=== PATIENT | female | born 1940 | race Caucasian/White ===

== ENCOUNTER → 2017-05-11 15:17 | Outpatient (CLI) | payer MEDICARE, SELFPAY ==
[2017-05-11 15:24] LABS: Mucous, Urine 0 SEEN /hpf (<or=2+); Red Blood Cells-Urine 0 SEEN /hpf (0-5)
[2017-05-11 17:39] LABS: Absolute Lymphocyte Count 1.85 X10^3/ul (0.83-4.51); Absolute Neutrophil Count 3.4 X10^3/uL (2.0-7.7); Basophil# 0.02 X10^3/uL; Basophil% 0.3 % (0-1); Eosinophil# 0.21 X10^3/uL; Eosinophils% 3.4 % (0-5); Hematocrit 38.3 % (37-47); Hemoglobin 13.1 g/dl (12.0-15.0); Lymphocyte # 1.85 X10^3/ul (4.0); Lymphocyte % 29.6 % (19-41); Mean Corp Hgb Conc 34.2 g/gl (32-36); Mean Corpuscular Hgb 34.3 pg (27.0-32.0); Mean Corpuscular Volume 100.3 fL (81-99); Mean Platelet Vol. 10.1 fl (6.2-12.0); Monocyte# 0.73 X10^3/uL; Monocyte% 11.7 % (0-10); Neutrophil # 3.43 X10^3/uL (2.7-7.7); Neutrophil % 54.8 % (47-70); Platelet Count 191 K/mm3 (150-450); RBC Distribution Width CV 12.9 % (11.6-14.6); Red Blood Count 3.82 M/mm3 (4.2-5.4); White Blood Count 6.3 K/mm3 (4.4-11.0)
[2017-05-11 17:40] LABS: POSITIVE COUNT NO; POSITIVE DIFFERENTIAL NO; POSITIVE MORPHOLOGY NO
[2017-05-11 17:53] LABS: ALB/GLOB Ratio 1.3 RATIO (0.9-2.4); AST(SGOT) 28 U/L (15-37); Alanine Aminotransfer ALT/SGPT 33 U/L (13-56); Alkaline Phosphatase 97 U/L (45-117); Anion Gap 6 (5-15); BUN 20 mg/dL (7-18); BUN/Creat Ratio 17.7 RATIO (10-20); Calcium,Total 9.1 mg/dL (8.5-10.1); Chloride 102 mmol/L (98-107); Cholesterol 158 mg/dL (200); Creatinine, Serum 1.13 mg/dL (0.55-1.02); EST Glomerular Filtration Rate 50 mL/min (>60); Est Glom Filt Rate - Afr Amer 60 mL/min (>60); Ferritin 124 ng/mL (8-252); Glucose 78 mg/dL (74-106); High Density Lipoprotein 60 mg/dL; Iron 95 ug/dL (50-170); Potassium 3.9 mmol/L (3.5-5.1); Sodium Level 139 mmol/L (136-145); Triglycerides 200 mg/dL; Very Low Density Lipoprotein 40 mg/dL (5-40)
[2017-05-11 18:02] LABS: Color, Urine Yellow (Yellow); Glucose, Dipstick Normal (Normal); Ketone-Dipstick Negative (Negative); Leukocyte Esterase-Dipstick 25 /ul (Negative); Nitrite-Dipstick Negative (Negative); Occult Blood-Urine Negative /ul (Negative); Protein-Dipstick Negative (Negative); Specific Gravity, Urine 1.015 (1.002-1.030); Urine Bilirubin Dipstick Negative (Negative); Urine Clarity Cloudy (Clear); Urine Urobilinogen Normal (Normal)
[2017-05-11 18:11] LABS: Amorphous Sediment 3+; Bacteria 4+ /hpf (None Seen); Squamous Epithelial Cells - UA 0-5 SEEN /hpf (5-10); White Blood Cells 0-5 SEEN /hpf (0-5)
== END ==
PROVIDERS: Family Provider Family Medicine; PCP Family Medicine; Visit Provider Family Medicine
DX: I12.9 Hypertensive chronic kidney disease with stage 1 through stage 4 chronic kidney disease, or unspecified chronic kidney disease (principal); N18.3 Chronic kidney disease, stage 3 (moderate); R35.0 Frequency of micturition; E78.5 Hyperlipidemia, unspecified; G30.9 Alzheimer's disease, unspecified; D64.9 Anemia, unspecified
CPT/HCPCS: 36415; 80053; 80061; 81001; 82728; 83540; 85025; 87086; 87088

== ENCOUNTER 2018-06-06 18:43 | Inpatient (IN) | payer MEDICARE, SELFPAY ==
[2018-06-06] VITALS (10 sets, daily range): BP systolic 183–196; BP diastolic 81–96; PULSE 59–104; RESP 17–23; TEMP 36.8–37.2; O2SAT 96–100; BMI 30.1; BMI 28.3; BMI 28.4
--- NOTE | 2018-06-06 18:50 | ED.RN ---
RN CALLED FOR EKG, PULLED OLD EKGS FOR
--- NOTE | 2018-06-06 18:54 | CT_ITS ---
STUDY: CTA OF THE BRAIN REASON FOR EXAM: Female, 77 years old. Confusion, dizziness. RADIATION DOSAGE (If Supplied By Facility): CTDIvol = ( 25.74 ) mGy, DLP = ( 1285.31 ) mGycm TECHNIQUE: CT angiography was performed with a multi-detector CT scanner. Data acquisition was obtained from the skull base through the vertex following intravenous administration of 100ML IV Isovue 370. MIP images were reconstructed from the axial data set. Post-processing of the angiographic images was performed, with multiplanar reformation and 3D reconstruction. Individualized dose optimization techniques were used for this CT. COMPARISON: None. FINDINGS: CT brain without contrast: There is no intracranial mass, hemorrhage, or acute territorial infarct. Extensive low-attenuation changes in the periventricular white matter are consistent with microvascular ischemia. Ventricular size is commensurate with the degree of sulcal atrophy. Moderate involutional changes are present. There is trace mucosal thickening in the maxillary sinuses.. There is no osseous abnormality. CTA brain: Normal bilateral petrous carotid arteries. Normal right cavernous carotid artery with a normal supraclinoid bifurcation. Normal left cavernous carotid artery with a normal supraclinoid bifurcation. Normal right A1 segment of the anterior cerebral artery. Normal left A1 segment of the anterior cerebral artery. There is non-visualization of the anterior communicating artery (ACOM). Normal bilateral A2 segments of the anterior cerebral arteries. Normal right M1 and M2 segments of the middle cerebral arteries, with a normal M1 bifurcation. Normal left M1 and M2 segments of the middle cerebral arteries, with a normal M1 bifurcation. Normal right posterior communicating artery (PCOM). There is non-visualization of the left posterior communicating artery (PCOM). Normal bilateral vertebral arteries. Normal basilar artery with a normal basilar bifurcation. The visualized bilateral superior cerebellar (SCA) arteries are normal. Normal bilateral P1, P2 and visualized P3 segments of the posterior cerebral arteries. There is no demonstrated aneurysm of the [place]. IMPRESSION: 1. Normal [place] without a demonstrated aneurysm or significant stenosis. 2. Microvascular ischemic changes. Atrophy. Electronically Signed: Alycai Mahoney MD at 20:11 EDT Tel , Service support , STUDY: CTA NECK WITH CONTRAST REASON FOR EXAM: Female, 77 years old. Confusion, dizziness. RADIATION DOSAGE (If Supplied By Facility): CTDIvol = ( ) mGy, DLP = ( ) mGycm TECHNIQUE: CT angiography with multi-detector data acquisition was performed from the aortic arch to the skull base following intravenous administration of 100mL IV Isovue 370. MIP images were reconstructed from the axial data set. Post-processing of the angiographic images was performed, with multiplanar reformation and 3D reconstruction. Individualized dose optimization techniques were used for this CT. COMPARISON: None. FINDINGS: AORTIC ARCH: Normal visualized aortic arch. Normal origins of the brachiocephalic, left common carotid, and left subclavian arteries. RIGHT CAROTID ARTERIES: Normal right common carotid artery (CCA). There is moderate atherosclerotic plaque formation without narrowing of the right carotid bulb. Normal origin of the right internal carotid (ICA) artery without a significant stenosis. Normal visualized cervical portion of the right internal carotid artery. Normal origin of the right external carotid artery (ECA). LEFT CAROTID ARTERIES: Normal left common carotid artery (CCA). There is moderate atherosclerotic plaque formation without narrowing of the left carotid bulb. Normal origin of the left internal carotid (ICA) artery without a significant stenosis. Normal visualized cervical portion of the left internal carotid artery. Normal origin of the left external carotid artery (ECA). VERTEBRAL ARTERIES: Normal bilateral vertebral arteries. CT/CTA Head W/WO Contrast IMPRESSION: Atherosclerotic plaque of the carotid bulbs, otherwise negative bilateral cervical carotid and vertebral arteries. Electronically Signed: Alycia Mahoney MD at 20:19 EDT Tel , Service support ,
--- NOTE | 2018-06-06 18:54 | EKG12_ITS ---
Test Reason : CP Blood Pressure : / mmHG Vent. Rate : 095 BPM Atrial Rate : 095 BPM P-R Int : 114 ms QRS Dur : 082 ms QT Int : 356 ms P-R-T Axes : -01 -28 002 degrees QTc Int : 447 ms Sinus rhythm with marked sinus arrhythmia Borderline ECG Confirmed by ELIZABETH SETHI ([id number]), graphics editor BEN CALLE ([id number]) on 06/10/2018 4:52:26 PM Referred By: Ethan Morgan Confirmed By:ELIZABETH SETHI
--- NOTE | 2018-06-06 18:54 | CT_ITS ---
STUDY: CTA OF THE BRAIN REASON FOR EXAM: Female, 77 years old. Confusion, dizziness. RADIATION DOSAGE (If Supplied By Facility): CTDIvol = ( 25.74 ) mGy, DLP = ( 1285.31 ) mGycm TECHNIQUE: CT angiography was performed with a multi-detector CT scanner. Data acquisition was obtained from the skull base through the vertex following intravenous administration of 100ML IV Isovue 370. MIP images were reconstructed from the axial data set. Post-processing of the angiographic images was performed, with multiplanar reformation and 3D reconstruction. Individualized dose optimization techniques were used for this CT. COMPARISON: None. FINDINGS: CT brain without contrast: There is no intracranial mass, hemorrhage, or acute territorial infarct. Extensive low-attenuation changes in the periventricular white matter are consistent with microvascular ischemia. Ventricular size is commensurate with the degree of sulcal atrophy. Moderate involutional changes are present. There is trace mucosal thickening in the maxillary sinuses.. There is no osseous abnormality. CTA brain: Normal bilateral petrous carotid arteries. Normal right cavernous carotid artery with a normal supraclinoid bifurcation. Normal left cavernous carotid artery with a normal supraclinoid bifurcation. Normal right A1 segment of the anterior cerebral artery. Normal left A1 segment of the anterior cerebral artery. There is non-visualization of the anterior communicating artery (ACOM). Normal bilateral A2 segments of the anterior cerebral arteries. Normal right M1 and M2 segments of the middle cerebral arteries, with a normal M1 bifurcation. Normal left M1 and M2 segments of the middle cerebral arteries, with a normal M1 bifurcation. Normal right posterior communicating artery (PCOM). There is non-visualization of the left posterior communicating artery (PCOM). Normal bilateral vertebral arteries. Normal basilar artery with a normal basilar bifurcation. The visualized bilateral superior cerebellar (SCA) arteries are normal. Normal bilateral P1, P2 and visualized P3 segments of the posterior cerebral arteries. There is no demonstrated aneurysm of the [place]. IMPRESSION: 1. Normal [place] without a demonstrated aneurysm or significant stenosis. 2. Microvascular ischemic changes. Atrophy. Electronically Signed: Alycia Mahoney MD at 20:11 EDT Tel , Service support , STUDY: CTA NECK WITH CONTRAST REASON FOR EXAM: Female, 77 years old. Confusion, dizziness. RADIATION DOSAGE (If Supplied By Facility): CTDIvol = ( ) mGy, DLP = ( ) mGycm TECHNIQUE: CT angiography with multi-detector data acquisition was performed from the aortic arch to the skull base following intravenous administration of 100mL IV Isovue 370. MIP images were reconstructed from the axial data set. Post-processing of the angiographic images was performed, with multiplanar reformation and 3D reconstruction. Individualized dose optimization techniques were used for this CT. COMPARISON: None. FINDINGS: AORTIC ARCH: Normal visualized aortic arch. Normal origins of the brachiocephalic, left common carotid, and left subclavian arteries. RIGHT CAROTID ARTERIES: Normal right common carotid artery (CCA). There is moderate atherosclerotic plaque formation without narrowing of the right carotid bulb. Normal origin of the right internal carotid (ICA) artery without a significant stenosis. Normal visualized cervical portion of the right internal carotid artery. Normal origin of the right external carotid artery (ECA). LEFT CAROTID ARTERIES: Normal left common carotid artery (CCA). There is moderate atherosclerotic plaque formation without narrowing of the left carotid bulb. Normal origin of the left internal carotid (ICA) artery without a significant stenosis. Normal visualized cervical portion of the left internal carotid artery. Normal origin of the left external carotid artery (ECA). VERTEBRAL ARTERIES: Normal bilateral vertebral arteries. CT/CTA Neck W/WO Contrast IMPRESSION: Atherosclerotic plaque of the carotid bulbs, otherwise negative bilateral cervical carotid and vertebral arteries. Electronically Signed: Alycia Mahoney MD at 20:19 EDT Tel , Service support ,
[2018-06-06 19:06] LABS: Basophil# 0.03 X10^3/uL; Basophil% 0.3 % (0-1); Eosinophil# 0.07 X10^3/uL; Eosinophils% 0.7 % (0-5); Hematocrit 42.5 % (37-47); Hemoglobin 14.9 g/dl (12.0-15.0); Lymphocyte % 18.7 % (19-41); Mean Corp Hgb Conc 35.1 g/gl (32-36); Mean Corpuscular Hgb 33.9 pg (27.0-32.0); Mean Corpuscular Volume 96.8 fL (81-99); Mean Platelet Vol. 9.4 fl (6.2-12.0); Monocyte# 1.21 X10^3/uL; Monocyte% 11.9 % (0-10); Neutrophil # 6.95 X10^3/uL (2.7-7.7); Neutrophil % 68.2 % (47-70); Platelet Count 185 K/mm3 (150-450); RBC Distribution Width CV 12.2 % (11.6-14.6); RBC Distribution Width SD 43.2 fl (35.1-43.9); Red Blood Count 4.39 M/mm3 (4.2-5.4); White Blood Count 10.2 K/mm3 (4.4-11.0)
[2018-06-06 19:09] LABS: Prothrombin Time (Protime)PT. 13.1 SECONDS (11.7-14.9)
[2018-06-06 19:10] LABS: POSITIVE COUNT NO; POSITIVE DIFFERENTIAL NO; POSITIVE MORPHOLOGY NO; Partial Thromboplast Time 29.6 Seconds (24.1-36.2)
--- NOTE | 2018-06-06 19:15 | RAD_ITS ---
STUDY: X-RAY CHEST REASON FOR EXAM: Female, 77 years old. Confusion, weakness TECHNIQUE: Single AP portable view of the chest. COMPARISON: 11/08/2016 FINDINGS: EKG leads overlie the chest The lungs are clear and expanded. There is no demonstrated pleural abnormality. Normal size heart. Normal mediastinum and flavio. Normal visualized pulmonary arteries. Normal visualized aortic arch and descending thoracic aorta. Normal visualized thoracic spine. Normal visualized ribs, clavicles, and shoulders. There is no demonstrated abnormality of the visualized soft tissue structures of the upper abdomen. RAD/Chest 1 View IMPRESSION: No acute pulmonary process Electronically Signed: Sudhakar Lama MD at 19:37 EDT , Service support ,
[2018-06-06] MEDS: Aspirin 81 MG TAB.CHEW 324 MG PO (19:25)
[2018-06-06 19:27] LABS: Anion Gap 6 (5-15); BUN 14 mg/dL (7-18); BUN/Creat Ratio 13.2 RATIO (10-20); Calcium,Total 9.7 mg/dL (8.5-10.1); Chloride 99 mmol/L (98-107); Creatinine, Serum 1.06 mg/dL (0.55-1.02); EST Glomerular Filtration Rate 54 mL/min (>60); Est Glom Filt Rate - Afr Amer 65 mL/min (>60); Estimated Creatinine Clearance 44.94 ml/min; Glucose 92 mg/dL (74-106); Potassium 3.6 mmol/L (3.5-5.1); Sodium Level 134 mmol/L (136-145)
[2018-06-06 19:44] LABS: Bacteria 0 SEEN /hpf (None Seen); Mucous, Urine 0 SEEN /hpf (<or=2+); Red Blood Cells-Urine 0 SEEN /hpf (0-5); Squamous Epithelial Cells - UA 0 SEEN /hpf (5-10); White Blood Cells 0 SEEN /hpf (0-5)
[2018-06-06 19:47] LABS: Color, Urine Straw (Yellow); Glucose, Dipstick Normal (Normal); Ketone-Dipstick Negative (Negative); Leukocyte Esterase-Dipstick 25 /ul (Negative); Nitrite-Dipstick Negative (Negative); Occult Blood-Urine Negative /ul (Negative); Protein-Dipstick Negative (Negative); Urine Bilirubin Dipstick Negative (Negative); Urine Clarity Clear (Clear); Urine Urobilinogen Normal (Normal)
--- NOTE | 2018-06-06 19:57 | ED.DCSUM_ITS ---
- ER Visit Summary Date of Service: 06/06/18 Chief Complaint: Chest pain, neck pain History of Present Illness: The patient is a 77 F who comes in with family complaining of chest pain and neck pain. This neck pain started yesterday. Family thought she was a little bit confused as well. She has this pain in her chest which she cannot describe the quality of. She denies nausea vomiting or shortness of breath. They thought her speech was also slurred. She has no history of stroke in the past. Physical Examination: Vital signs reviewed. HEENT exam unremarkable. Heart is regular rate and rhythm without murmurs. Lungs are clear to auscultation. Abdomen is soft and nontender. Extremities reveal no edema. Skin exam normal. Neurologic exam normal. Her NIH is 0. Test Results: EKG is a sinus arrhythmia with rate of 95. Nonspecific ST and T wave changes noted. CTA of the head and neck reveals some atherosclerotic plaques in the carotid arteries but no obstruction. Chest x-ray normal. Labs are unremarkable except for a sodium of 134 Emergency Department Course and Treatment: The patient was medicated with aspirin. Due to her nonspecific symptoms I did do CTAs of her head and neck. There is no obstructing lesions. Due to the patient's chest pain I feel she should be admitted for cycling of her troponins due to her age and risk factors. I discussed with the hospitalist for admission. Treatment Plan: [] Disposition: Admit Impression: Chest pain, neck pain This note was generated with [employer] dictation software. It may contain incorrect words, spelling, and punctuation that were not noted in review of the chart prior to signing ED Disposition - Plan for ED Patient: Referrals: Filiberto Robles DO [Primary Care Provider] -
--- NOTE | 2018-06-06 20:54 | ED.RN ---
per d/c nih d/t 3 neg nih's.
--- NOTE | 2018-06-06 21:27 | PCM.HP.STD ---
Problem List (1) Chest pain Status: Acute Qualifiers: Chest pain type: unspecified Qualified Code(s): R07.9 - Chest pain, unspecified (2) Ulcer of toe of left foot Status: Acute Qualifiers: Non-pressure ulcer stage: unspecified non-pressure ulcer stage Qualified Code(s): L97.529 - Non-pressure chronic ulcer of other part of left foot with unspecified severity (3) Dementia Status: Chronic Qualifiers: Dementia type: unspecified type Dementia behavioral disturbance: without behavioral disturbance Qualified Code(s): F03.90 - Unspecified dementia without behavioral disturbance (4) HTN (hypertension) Status: Chronic Qualifiers: Hypertension type: essential hypertension Qualified Code(s): I10 - Essential (primary) hypertension (5) HLD (hyperlipidemia) Status: Chronic Qualifiers: Hyperlipidemia type: pure hypercholesterolemia Qualified Code(s): E78.00 - Pure hypercholesterolemia, unspecified; E78.0 - Pure hypercholesterolemia (6) GERD (gastroesophageal reflux disease) Status: Chronic Qualifiers: Esophagitis presence: esophagitis presence not specified Qualified Code(s): K21.9 - Gastro-esophageal reflux disease without esophagitis (7) Neuropathy Status: Chronic (8) Allergic rhinitis Status: Chronic Qualifiers: Allergic rhinitis trigger: unspecified Allergic rhinitis seasonality: unspecified Qualified Code(s): J30.9 - Allergic rhinitis, unspecified History of Present Illness Date of Admission: 06/06/18 Chief Complaint: Chest pain, neck tightness, L 2nd toe ulcer The patient is a 77 y/o F w/ PMHx: Dementia unclear type without behavioral disturbance history, HTN, HLD, GERD, Neuropathy, Allergic Rhinitis who presents to the [facility] ED on 06/06/18 with history of 48 hours of midsternal chest tightness noted to be intermittent in nature with constant BL shoulder as well as neck discomfort, tense, worse with certain movements; however, did have episode of chest tightness at ~ 5:00 pm on day of ED presentation with associated dyspnea as well as nausea without emesis. Daughter has stated that over the last 48 hours patient has been more confused than baseline although does have at least moderate dementia and difficulties baseline. In the ED upon evaluation they noted having been following w/ Dr. Morgan Podiatry for chronic L 2nd toe distal tip ulcer. The dressing was removed and the foot was warm to touch and the distal tip appeared necrotic and was added with notable purulent material expressed. Discussed these findings with the ED physician and blood culture as well as lactic acid was added although upon evaluation initially patient had been afebrile and CBC did not have a market WBC elevation or left shift. Contacted Dr. Morgan and discussed case with notably quick progression of these findings as patient had had a recent evaluation in the office with planned consultation to Dr. medina who is covering service currently. In the ED patient had a complete resolution of chest discomfort but prior to this had stated that the discomfort had been 5 out of 10. Work-up in the ED included T 99, heart rate 94, BP 18, 97% on room air, CBC with WBC 10.2, hemoglobin 14.9, platelet 185 without market left shift, unremarkable coags, BMP with sodium 134, BUN/creatinine 14/1.06, troponin less than 0.015, urinalysis unremarkable appearing, chest x-ray with no acute cardia pulmonary process, CTA head with atherosclerotic plaques of the carotid bulbs otherwise negative bilateral cervical carotid and vertebral arteries. The patient administered 324 mg p.o. x1 aspirin. Past Medical History Past Medical History (Chronic Problems): Chronic Problems Dementia (Chronic) HTN (hypertension) (Chronic) HLD (hyperlipidemia) (Chronic) GERD (gastroesophageal reflux disease) (Chronic) Neuropathy (Chronic) Allergic rhinitis (Chronic) Allergies cefaclor [From Ceclor] Allergy (Verified 06/06/18 18:43) Other DOESN'T REMEMBER REACTION Penicillins [PCN] Allergy (Verified 06/06/18 18:43) Hives prochlorperazine [From Compazine] Allergy (Verified 06/06/18 18:43) Unknown HYPOTHINE Allergy (Uncoded 10/27/16 10:11) Unknown Home Medications: Ambulatory Orders Medication Instructions Recorded Carbamazepine [Tegretol] 200 mg PO BID 12/10/15 Cholecalciferol (Vitamin D3) 10,000 unit PO QHS 12/10/15 [Vitamin D3] Cyanocobalamin (Vitamin B-12) 2,500 mcg PO DAILY 12/10/15 [Vitamin B12] Glucosam/Chond/MSM/[place]/Hyal 1 each PO BID 12/10/15 [Glucosamine-Chondr Complex Tab] Lovastatin [Mevacor] 20 mg PO DAILY 12/10/15 Ranitidine [Zantac] 150 mg PO BID 12/10/15 Acetaminophen [Tylenol Extra 500 mg PO PRN PRN 06/06/18 Strength] Amlodipine Besylate 5 mg PO DAILY 06/06/18 Aspirin [Aspirin EC] 81 mg PO DAILY 06/06/18 Biotin 10 mg PO DAILY 06/06/18 Calcium (Elemental) [[place] 500] 500 mg PO DAILY 06/06/18 Cetirizine HCl [Zyrtec] 10 mg PO DAILY 06/06/18 Lactobacillus Acidophilus 1 cap PO DAILY 06/06/18 [Probiotic] Lisinopril 20 mg PO DAILY 06/06/18 Magnesium 250 mg PO DAILY 06/06/18 Memantine HCl 10 mg PO BID 06/06/18 Multivitamin [Multiple Vitamins] 1 tab PO DAILY 06/06/18 Surgical History: - - Hysterectomy, bilateral total knee replacement, left total hip replacement. 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 Smoking Status: Never smoker Tobacco Use: Non-smoker Alcohol: None Drugs: None - *Family History Maternal History Items: - - Patient has a maternal and paternal family history of stroke, heart disease and diabetes. Paternal History Items: - - Patient has a maternal and paternal family history of stroke, heart disease and diabetes. Review of Systems Constitutional: Reports: Anorexia, Chills, Fever, Malaise, Weakness, Fatigue. Denies: Weight Change HEENT: Denies: Head Aches, Sinus Congestion, Sinus Drainage Cardiovascular: Reports: Chest Pain, Chest Tightness. Denies: Light Headedness, Orthopnea, Palpitations, Syncope Respiratory: Reports: Shortness of Breath. Denies: Cough, Shortness of breath at rest, Sputum production Gastrointestinal: Reports: Nausea. Denies: Abdominal Pain, Vomiting Genitourinary: Denies: Dysuria Musculoskeletal: Reports: Back Pain, Neck Pain, Shoulder Pain. Denies: Joint Pain, Joint Tenderness Skin: Reports: Skin Changes, Wounds. Denies: Rash Neurological: Reports: Confusion. Denies: Focal weakness, Numbness, Tingling Psychiatric: Denies: Anxiety, Depression, Homicidal Ideations, Suicidal Ideations Hematologic/ Lymphatic: Denies: Easy Bruising, Easy Bleeding VTE Information - Inpt Only VTE Present on Admission: No VTE Mechan Device Prophylaxis: SCD's VTE Pharm Prophylaxis ordered?: Yes Patient Problems: Active and Suspected Problems Chest pain (Acute) Ulcer of toe of left foot (Acute) Subjective: Seated upright in the ED bed, fatigued appearance, denies any ongoing chest discomfort. Objective: Physical Examination: General: awake, alert, oriented x 3 clearing self, place, recent events, does have underlying moderate dementia, occasional lucid intermittent periods per daughter, remains cooperative, seated upright in bed in no apparent distress. Skin: normal color, turgor, no icterus, cyanosis except left second toe distal tip necrotic, macerated, able to express notable amount of purulent material, foul-smelling and foot warm to touch. HEENT: AT/NC, EOMI, PERRLA, mildly dry MM, no carotid bruits or JVD noted. Lungs: CTA bilaterally, moderate effort, mild decrease BL bases, no rales, ronchi or wheezing. Heart: Regular rate and rhythm; no gallop, rub audible. Abdomen: soft, NTTP, ND, normal BS, no HSM. Extremities: no cyanosis, clubbing, see skin. Neurological: patient awake, alert, oriented as noted; cognitive function improved by daughter notes still not baseline but is decreased baseline given moderate dementia; pupils equally reactive to light and accomodation; cranial nerves II-XII grossly normal, moving all 4 extremities, no focal deficits, strength moderately global decreased secondary to acute presentation. Psychiatric: affect appears flat, fatigued, no acute evidence of depressive or anxiety feelings. - Physical Exam Vital Signs Temp Pulse Resp BP Pulse Ox 99.0 F 87 17 186/87 H 98 06/06/18 18:50 06/06/18 21:00 06/06/18 21:00 06/06/18 21:00 06/06/18 21:00 Oxygen Delivery Method Room Air Weight: 139 lb Body Mass Index (BMI) 30.0 Laboratory Tests Past 24 Hrs 06/06/18 06/06/18 06/06/18 18:50 18:50 18:50 WBC 10.2 RBC 4.39 Hgb 14.9 Hct 42.5 MCV 96.8 MCH 33.9 H MCHC 35.1 RDW 12.2 RDW Differential 43.2 Plt Count 185 MPV 9.4 Immature Gran % (Auto) 0.200 Neut % (Auto) 68.2 Lymph % (Auto) 18.7 L Stan[place] % (Auto) 11.9 H Eos % (Auto) 0.7 Baso % (Auto) 0.3 Absolute Neuts (auto) 7.0 Absolute Lymphs (auto) 1.90 Total Counted Not Reportable PT 13.1 INR 1.0 APTT 29.6 Sodium 134 L Potassium 3.6 Chloride 99 Carbon Dioxide 29.0 Anion Gap 6 BUN 14 Creatinine 1.06 H Estim Creat Clear Calc 44.94 Est GFR (MDRD) Af Amer 65 Est GFR (MDRD) Non-Af 54 L BUN/Creatinine Ratio 13.2 Glucose 92 Calcium 9.7 Troponin I < 0.015 Urine Color Urine Clarity Urine pH Ur Specific [place] Urine Protein Urine Glucose (UA) Urine Ketones Urine Occult Blood Urine Nitrite Urine Bilirubin Urine Urobilinogen Ur Leukocyte Esterase Urine RBC Urine WBC Ur Squamous Epith Cells Urine Bacteria Urine Mucus 06/06/18 19:30 WBC RBC Hgb Hct MCV MCH MCHC RDW RDW Differential Plt Count MPV Immature Gran % (Auto) Neut % (Auto) Lymph % (Auto) [place] % (Auto) Eos % (Auto) Baso % (Auto) Absolute Neuts (auto) Absolute Lymphs (auto) Total Counted PT INR APTT Sodium Potassium Chloride Carbon Dioxide Anion Gap BUN Creatinine Estim Creat Clear Calc Est GFR (MDRD) Af Amer Est GFR (MDRD) Non-Af BUN/Creatinine Ratio Glucose Calcium Troponin I Urine Color Straw Urine Clarity Clear Urine pH 8.0 Ur Specific [place] 1.010 Urine Protein Negative Urine Glucose (UA) Normal Urine Ketones Negative Urine Occult Blood Negative Urine Nitrite Negative Urine Bilirubin Negative Urine Urobilinogen Normal Ur Leukocyte Esterase 25 H Urine RBC 0 SEEN Urine WBC 0 SEEN Ur Squamous Epith Cells 0 SEEN Urine Bacteria 0 SEEN Urine Mucus 0 SEEN Assessment/Plan All Active Problems Chest pain (Acute) Ulcer of toe of left foot (Acute) The patient is a 77 y/o F w/ PMHx: Dementia unclear type without behavioral disturbance history, HTN, HLD, GERD, Neuropathy, Allergic Rhinitis who presents to the [facility] ED on 06/06/18 with history of 48 hours of midsternal chest tightness noted to be intermittent in nature with constant BL shoulder as well as neck discomfort, tense, worse with certain movements; however, did have episode of chest tightness at ~ 5:00 pm on day of ED presentation with associated dyspnea as well as nausea without emesis in addition to ED noted necrotic, infected left second distal toe tip. (1) Atypical Chest Pain: Suspect likely musculoskeletal especially given discomfort reproducible with palpation of the neck and shoulders but no reproducible midsternal discomfort and underlying history of high blood pressure and high cholesterol. EKG in ED no acute evidence of ischemia, CXR w/ cardiopulmonary findings, initial trop normal x1. Will admit to PCU, place on a monitored bed to assure no acute myocardial infarction with serial cardiac enzymes and EKGs. Patient is unable to perform exercise thus will proceed with AM nuclear stress testing if cycled enzymes and repeat EKGs remain unremarkable. ASA, NG, morphine. FLP in AM. Mag pending. (2) L 2nd Toe Infected Ulcer, Necrotic, Suspect Osteomyelitis: Will initiate on IV BSA w/ Vanc and Levaquin pending wound and MRSA wound culture, continue affected extremity elevation above heart when seated and in bed, monitor for onset erythema outline with VS checks, Podiatry and ID consulted, requested 3V plain film L foot initially, but may require MRI foot. PRN pain regimen, antiemetics. (3) Dementia unclear type without behavioral disturbance history: Complicates presentation, fall precautions, orientation as needed, continue home memantine regimen. (4) Hypertension: Continue home regimen including amlodipine, lisinopril, PRN hydralazine. (5) Hyperlipidemia: Continue home statin regimen. AM FLP. (6) Neuropathy, BL LE: To new home Tegretol regimen. (7) GERD: Ranitidine. (8) DVT Prophylaxis: SCDs, lovenox. (9) CODE status: Discussed CODE status at length including difference between FULL code, DNR-CCA and DNR-CC status. Following discussions about the differences in these status, requested Full Code with planned continuation discussions between the patient and her daughter. Patient daughter is her HCPOA and living will is in place. Advanced Care Planning Face to Face Time: 16 minutes. Code Visit Inpatient E&M: 12470 Init Hosp L3 Procedures: 80382 Advncd Care Plan 30 Min
[2018-06-06 21:59] LABS: Lactic Acid 0.8 mmol/L (0.4-2.0)
--- NOTE | 2018-06-06 22:12 | EKG12_ITS ---
Test Reason : CP ADMIT Blood Pressure : / mmHG Vent. Rate : 098 BPM Atrial Rate : 098 BPM P-R Int : 122 ms QRS Dur : 084 ms QT Int : 368 ms P-R-T Axes : 018 -38 020 degrees QTc Int : 469 ms Normal sinus rhythm Left axis deviation Minimal voltage criteria for LVH, may be normal variant Abnormal ECG When compared with ECG of 06-JUN-2018 18:44, MANUAL COMPARISON REQUIRED, DATA IS UNCONFIRMED Confirmed by MAIKEL GARCIA, DON ([id number]), science editor BEN CALLE ([id number]) on 06/12/2018 1:59:06 PM Referred By: Ethan Morgan Confirmed By:DON KO MD
--- NOTE | 2018-06-06 22:15 | RAD_ITS ---
STUDY: X-RAY - LEFT FOOT CLINICAL: Female, 77 years old. Necrotic second toe. TECHNIQUE: Callie view(s) of the foot. COMPARISON: None. FINDINGS: There is no acute fracture or dislocation. There has been prior internal fixation and arthrodesis of the first through third tarsometatarsal joints. Joint spaces are well-maintained. There is soft tissue swelling of the distal second digit. Mild erosion of the tuft of the second distal phalanx is questioned. Phalanges are otherwise unremarkable. RAD/Foot min 3 Views IMPRESSION: Question mild erosive change of the second distal phalangeal tuft. Consider MRI with contrast if there is suspicion of osteomyelitis. Soft tissue swelling of the second digit. Electronically Signed: Alycia Mahoney MD at 22:44 EDT Tel , Service support ,
[2018-06-06 22:37] LABS: Erythrocyte Sedimentation Rate 16 mm/hr (0-30); Magnesium 2.4 mg/dL (1.6-2.6)
--- NOTE | 2018-06-06 23:17 | PCM.RX.CS ---
Consult Pharmacy has been consulted to manage selected antiobiotic: Vancomycin Type of Consult: New start Suspected Infection: Skin/Soft tissue Prior Doses of Antibiotics Received/Current Regimen: none Labs: Sodium 134 mmol/L (136-145) L 06/06/18 18:50 Potassium 3.6 mmol/L (3.5-5.1) 06/06/18 18:50 Chloride 99 mmol/L (98-107) 06/06/18 18:50 Carbon Dioxide 29.0 mmol/L (21.0-32.0) 06/06/18 18:50 Anion Gap 6 (5-15) 06/06/18 18:50 BUN 14 mg/dL (7-18) 06/06/18 18:50 Creatinine 1.06 mg/dL (0.55-1.02) H 06/06/18 18:50 Est GFR (MDRD) Af Amer 65 mL/min (>60) 06/06/18 18:50 Est GFR (MDRD) Non-Af 54 mL/min (>60) L 06/06/18 18:50 BUN/Creatinine Ratio 13.2 RATIO (10-20) 06/06/18 18:50 Glucose 92 mg/dL (74-106) 06/06/18 18:50 Weight used for dosin kg Estimated Creatinine Clearance: 27ML/MIN Goal Trough: 10-15 mcg/mL Pharmacy Plan for Drug Dosing: PLAN/RECOMMENDATIONS 1. Vancomycin initial dose of 1000mg IV x1 06/06/18 @2300 2. Scheduled vancomycin 500mg IV Q24hr to start 06/07/18 @2300 3. Trough scheduled 06/08/18 @2230, prior to 3rd total dose per protocol 4. Pharmacy Service will continue to monitor and adjust dosing as required.
[2018-06-06 23:51] LABS: M R Staph aureus DNA By PCR Negative (Negative); Probe Check PASS; Staph aureus DNA By PCR NEGATIVE (Negative)
[2018-06-07] VITALS (12 sets, daily range): BP systolic 129–178; BP diastolic 69–95; PULSE 75–105; RESP 16–18; TEMP 36.5–37; O2SAT 94–98
[2018-06-07] MEDS: 0.9% Normal Saline 1,000 ML 100 ML IV ×2 (00:35→20:25)
[2018-06-07] MEDS: levoFLOXacin IV 750 MG/150 ML BAG 100 MG IV (00:35)
[2018-06-07] MEDS: Atorvastatin Calcium 10 MG Tablet PO ×2 (00:37→21:28)
[2018-06-07] MEDS: carBAMazepine 200 MG Tablet PO ×3 (00:37→21:28)
[2018-06-07] MEDS: Memantine Hydrochloride 10 MG Tablet PO ×3 (00:37→21:28)
[2018-06-07] MEDS: Vancomycin IV 1,000 MG/200 ML BAG 200 MG IV (02:29)
[2018-06-07] MEDS: Aspirin E.C. 81 MG Tablet PO (05:37)
[2018-06-07] MEDS: Lisinopril 20 MG Tablet PO (05:37)
[2018-06-07 05:52] LABS: Hematocrit 40.2 % (37-47); International Normalized Ratio 1.1; Mean Corp Hgb Conc 34.8 g/gl (32-36); Mean Corpuscular Hgb 33.3 pg (27.0-32.0); Mean Corpuscular Volume 95.7 fL (81-99); Mean Platelet Vol. 9.4 fl (6.2-12.0); Platelet Count 168 K/mm3 (150-450); Prothrombin Time (Protime)PT. 13.8 SECONDS (11.7-14.9); RBC Distribution Width CV 11.8 % (11.6-14.6); RBC Distribution Width SD 40.6 fl (35.1-43.9); White Blood Count 8.5 K/mm3 (4.4-11.0)
[2018-06-07 05:53] LABS: Partial Thromboplast Time 29.5 Seconds (24.1-36.2)
--- NOTE | 2018-06-07 05:55 | EKG12_ITS ---
Test Reason : AM Blood Pressure : / mmHG Vent. Rate : 092 BPM Atrial Rate : 092 BPM P-R Int : 110 ms QRS Dur : 084 ms QT Int : 378 ms P-R-T Axes : 007 -44 -12 degrees QTc Int : 467 ms Sinus rhythm with short VT with Premature atrial complexes in a pattern of bigeminy Left axis deviation Minimal voltage criteria for LVH, may be normal variant Abnormal ECG When compared with ECG of 06-JUN-2018 22:04, MANUAL COMPARISON REQUIRED, DATA IS UNCONFIRMED Confirmed by MAIKEL GARCIA, DON ([id number]), pictures editor BEN CALLE ([id number]) on 06/12/2018 1:47:06 PM Referred By: JC Confirmed By:DON KO MD
[2018-06-07 05:57] LABS: Scan Indicated on CBC? Y/N NO
[2018-06-07 06:14] LABS: ALB/GLOB Ratio 1.1 RATIO (0.9-2.4); AST(SGOT) 24 U/L (15-37); Alanine Aminotransfer ALT/SGPT 27 U/L (13-56); Albumin, Serum 3.6 g/dL (3.2-5.0); Alkaline Phosphatase 114 U/L (45-117); Anion Gap 7 (5-15); BUN 13 mg/dL (7-18); BUN/Creat Ratio 13.4 RATIO (10-20); Chloride 103 mmol/L (98-107); Cholesterol 142 mg/dL (200); Creatinine, Serum 0.97 mg/dL (0.55-1.02); EST Glomerular Filtration Rate 59 mL/min (>60); Est Glom Filt Rate - Afr Amer 72 mL/min (>60); Estimated Creatinine Clearance 46.35 ml/min; Globulin 3.4 g/dL (2.2-4.2); Glucose 129 mg/dL (74-106); High Density Lipoprotein 67 mg/dL; Potassium 3.7 mmol/L (3.5-5.1); Sodium Level 137 mmol/L (136-145); Triglycerides 93 mg/dL; Very Low Density Lipoprotein 19 mg/dL (5-40)
--- NOTE | 2018-06-07 07:59 | CASEMGMT ---
Addendum entered by Tatum Blunt 06/07/18 11:29: Note below reviewed and approved. EV Xiong Original Note: As per the most recent admitting hydrotechnical specialist, pt has LW/POA papers, and will have the papers brought to the hospital. Pt's daughter is POA. EV Xiong
--- NOTE | 2018-06-07 08:15 | STRESSREP_ITS ---
Stress Test Report Date: 06-07-18 Procedure: Pharmacologic stress nuclear imaging study Indications: Chest pain Consent: Per the patient Procedure: The patient underwent pharmacologic (Regadenoson) evaluation with a peak heart rate of 125 beats per minute (86 %predicted maximal heart rate) and a peak blood pressure of 162/104 mmHg. The baseline ECG demonstrated normal sinus rhythm; nonspecific T wave abnormality. The peak pharmacologic ECG demonstrated nonspecific T wave abnormality. [There were no cardiac dysrhythmias pretest, during pharmacologic infusion, or recovery]. [There was no complaint of chest discomfort during pharmacologic infusion or recovery]. The examination was discontinued secondary to completion of protocol. Impression: 1. Pharmacologic (Regadenoson) evaluation 2. Peak pharmacologic ECG with continued nonspecific T wave abnormality. 3. [There were no cardiac dysrhythmias pretest, during pharmacologic infusion, or recovery]. 4. Nuclear images pending Myocardial perfusion imaging study: Technique: The patient was injected with 11.1 millicuries of technetium 99m Cardiolite and subsequently rest SPECT Cardiolite nuclear imaging was obtained in the horizontal long, vertical long, and short axis views. The patient underwent pharmacologic (Regadenoson) evaluation with a peak heart rate of 125 beats per minute (86 %predicted maximal heart rate) and a peak blood pressure of 162/104 mmHg. The patient was injected with 33.4 millicuries of technetium 99m Cardiolite and subsequently stress SPECT Cardiolite nuclear imaging was obtained in the horizontal long, vertical long, and short axis views. A gated Cardiolite study at peak stress was obtained. Interpretation: Rest and stress SPECT Cardiolite nuclear imaging status post realignment, normalization, and attenuation correction demonstrate at rest a small area of subtle diminished tracer uptake in the distal anteroseptal/septal apical segments which appears to improved/normalized following stress. [There is end systolic thickening and brightening]. [The gated Cardiolite study demonstrates myocardial thickening and inward wall motion]. The reported LVEF is 80 %. Impression: 1. Rest and stress SPECT cardiac nuclear imaging demonstrate myocardial perfusion changes appear compatible shifting soft tissue attenuation/artifact being more prominent at rest as opposed to stress with no myocardial perfusion changes considered diagnostic for associated stress-induced myocardial ischemia. 2. The gated Cardiolite study reports an LVEF of 80 %. This note was generated with [employer] software. It may contain incorrect words, spelling, and punctuation that were not noted in checking the note before signing.
[2018-06-07] MEDS: Loratadine 10 MG Tablet PO (09:15)
[2018-06-07] MEDS: Famotidine 20 MG Tablet PO (09:15)
[2018-06-07] MEDS: amLODIPine 5 MG Tablet PO (09:15)
--- NOTE | 2018-06-07 09:56 | RAD_ITS ---
STUDY: X-RAY - CERVICAL SPINE REASON FOR EXAM: Female, 77 years old. Neck pain, no known injury TECHNIQUE: 5 view(s) of the cervical spine were obtained. COMPARISON: None FINDINGS: Normal anterior atlantoaxial articulation. Normal odontoid process. Normal alignment from C1 to C3. There is a grade 1 spondylolisthesis at C3-4, then C4-T1 align anatomically. There is straightening of the normal cervical lordosis. There is multi-level endplate spondylosis. There is multi-level degenerative disc disease with multilevel disc space narrowing. There is multi-level osseous foraminal stenosis. The soft tissue structures are unremarkable. There is no demonstrated fracture of the cervical spine. RAD/Cerv Spine 4 or 5 Views IMPRESSION: Multilevel degenerative changes with a grade 1 spondylolisthesis at C3-4, no demonstrated fracture or suspicious osseous lesion Electronically Signed: Sudhakar Lama MD at 12:45 EDT , Service support ,
--- NOTE | 2018-06-07 10:40 | CASEMGMT ---
RN ERIKA DIGITAL MEDIA STRATEGIST CM to room to meet with patient for initial transition planning/care coordination assessment. GINNY JAMES introduced self and role at [facility]. Pt resting in bed in no distress at this time. Pt is alert, has dementia, and oriented to name. DaughterArvin, @ bedside and states she is HCPOA. Assessment questions answered by daughter. Providers, pharmacy, and demographics verified/updated at this time. PCP: Travis Specialists: Dr Morgan, Podiatry Preferred Pharmacy: [facility] Insurance: [facility] Prescription Benefit: Yes Living Will/HPOA: Has both LW and HCPOA. DaughterArvin, states she is HCPOA. She is aware HCPOA paperwork not on file @ [facility]. She states she is unsure of where the paperwork is but she will look for it and asked if she finds it to bring it in to the hospital so it can be placed on pt's chart. LNOK: Daughter, Arvin, and ANU. She states pt has no other children. Living Arrangements: Pt has lived with Dtr, Arvin, ANU, and 3 grandchildren for approx past 7 years. Daughter states pt uses no DME to ambulate. Daughter states she is in school during the day and her works and pt is home alone M-F from approx 0730 to 1500. She states pt no longer cooks and sometimes forgets to eat at lunch times and inquired about information on Meals on Wheels. Dtr also states pt is having difficulty with knowing how to use the home phone and has been starting to place things in unusual places and do things Transportation: Daughter or ANU. DME: Pt has built-in shower chair. Does not use other DME. Arvin interested in Medical alert info. Given list of local Sessions that provide this. HHC/SNF: Was @ [facility] in the past after having hip surgery. Both pt and daughter agreeable to pt going to [facility] if she would need IV atb's on discharge. Pt has never had HHC services in the past but if would need HHC on discharge, daughter states preference is [facility]. PT/OT in to evaluate pt at this time. Long discussion with daughter about safety concerns with patient having dementia and pt being home alone while family is away. GINNY JAMES recommended for pt to have 24-hr care and not be home alone. Daughter states she is interested in information on Adult Day Care and Private duty aides. Dtr given list of local private duty aides and SW consult placed. Dtr also given information and contact information for [employer]. She voices appreciation. Advised dtr to ask for CM if any further questions/concerns/needs arise. Voices understanding. PLAN: TBD. Awaiting podiatry consult. PT/OT evals pending. SW consult for Limited support/pt with dementia, Meals on Wheels, and Information for Adult Day Care. Zack STARK RN CM
--- NOTE | 2018-06-07 11:08 | CPS ---
0730 AND AT 1030 ATTEMPTED TO START SMI....PT OUT OF ROOM. AT 1100 ATTEMPTED TO START SMI....P.T. WITH PT
--- NOTE | 2018-06-07 11:24 | CASEMGMT ---
Social Work Progressive Care Unit central supply worker financial internship visited pt and family member in room to provide information for [email or web address] Adult Day Care and Meals on Wheels brochure. No other services requested or indicated at this time. -Maia Pelletier, SOFTWARE RECRUITER Student Farm Implement Mechanic.
--- NOTE | 2018-06-07 12:08 | CASEMGMT ---
Addendum entered by Tatum Blunt 06/07/18 13:14: [facility] can take pt, they will start precert once antibiotic needs are known, SW will follow up when this information is available. SW let pt and daughter know that [facility] can take pt, but we are waiting to know pt's antibiotics before having them start precert, as this may help w/[place] approving. Pt and daughter state understanding. SW will continue to follow, will likely follow up w/pt and daughter on Sunday. EV Xiong Original Note: Addendum entered by Tatum Blunt 06/07/18 12:27: Referral faxed to [facility]. SW called Niya at [facility], let her know referral being faxed, ID still pending. If they can take pt will want to wait to see what antibiotics are needed before they start precert. SW will continue to follow. EV Xiong Original Note: SW spoke w/pt and daughter in room in regard to discharge plan. Pt and daughter agreeable to referral to [facility]. SW explained will make referral, and will see if they can take pt. If they can take pt they will start precert. There is still an ID consult and some imaging pending, so this may also impact whether or not insurance will authorize. SW let pt and daughter know that pt may be here until Sunday while we wait for everything to be completed and for us to see if insurance will authorize. Pt and daughter state understanding. SW will make referral shortly, will let pt and family know. EV Xiong
[2018-06-07] MEDS: Acetaminophen 325 MG Tablet 650 MG PO ×2 (12:40→20:41)
--- NOTE | 2018-06-07 12:53 | ART_ITS ---
Reason For Study: Ulcer Procedure A bilateral lower extremity continuous wave Doppler with analog waveform analysis,segmental pressures,and ankle brachial indexes without exercise. Left Segmental Pressures Left brachial= 146mmHg. Left posterior tibial artery = 152mmHg. Left dorsalis pedis artery = 146mmHg. Left digit = 59 mmHg. The left dorsalis pedis waveforms are biphasic. The left posterior tibial artery waveforms are triphasic. Right Segmental Pressures Right posterior tibial artery = 146mmHg. Right dorsalis pedis artery = 143mmHg. Right digit = 65 mmHg. The right dorsalis pedis waveforms are triphasic. The right posterior tibial artery waveforms are triphasic. Indices The right ankle brachial index by the dorsalis pedis is .98. The right ankle brachial index by the posterior tibial artery is 1.0. The right digital-brachial index is .45. The left ankle brachial index by the dorsalis pedis is 1.0. The left ankle brachial index by the posterior tibial artery is 1.0. The left digital-brachial index is .40. Interpretation Summary Normal bilateral lower extremity NIKI's. Triphasic waveforms noted in the right DP and PT and in the Left PT while the left anterior tibial is biphasic suggesting mild disease. Large vessel inflow appears maintained bilaterally Abnormal digital brachial indices consistent with small vessel disease bilaterally. Ordering Physician: Josefina El Referring Physician: JOSEFINA EL DPM Performed By: Bernice Berry RVT
--- NOTE | 2018-06-07 13:07 | PCM.CONS.GEN ---
Problem List (1) Other specified peripheral vascular diseases Status: Suspected (2) Ulcer of toe of left foot Status: Acute Qualifiers: Non-pressure ulcer stage: unspecified non-pressure ulcer stage Qualified Code(s): L97.529 - Non-pressure chronic ulcer of other part of left foot with unspecified severity Reason for Consult Date of Consultation: 06/07/18 Reason for Consultation: Left infected toe ulcer History of Present Illness: The patient is a 77 year old female with significant past medical history of dementia, hypertension, and neuropathy was seen bedside this afternoon for left infected second toe ulcer that has recently progressively worsened. She was initially seen last month with Dr. Morgan who recommended noninvasive vascular studies and wound care. There is been a progressive darkening discoloration and the patient is not sure what has happened; her dementia and intermittent confusion is noted. She denies foot pain, fever, chill, nausea, vomiting. She is able to participate limited in the exam today. Her family members bedside and confirms she does have a surgical shoe. She is previously refused to wear it and did not complete her ordered blood flow study test yet. Past Medical History Past Medical History (Chronic Problems): Chronic Problems Dementia (Chronic) HTN (hypertension) (Chronic) HLD (hyperlipidemia) (Chronic) GERD (gastroesophageal reflux disease) (Chronic) Neuropathy (Chronic) Allergic rhinitis (Chronic) Allergies cefaclor [From Ceclor] Allergy (Verified 06/06/18 18:43) Other DOESN'T REMEMBER REACTION Penicillins [PCN] Allergy (Verified 06/06/18 18:43) Hives prochlorperazine [From Compazine] Allergy (Verified 06/06/18 18:43) Unknown HYPOTHINE Allergy (Uncoded 10/27/16 10:11) Unknown Home Medications: Ambulatory Orders Medication Instructions Recorded Carbamazepine [Tegretol] 200 mg PO BID 12/10/15 Cholecalciferol (Vitamin D3) 10,000 unit PO QHS 12/10/15 [Vitamin D3] Cyanocobalamin (Vitamin B-12) 2,500 mcg PO DAILY 12/10/15 [Vitamin B12] Glucosam/Chond/MSM/[place]/Hyal 1 each PO BID 12/10/15 [Glucosamine-Chondr Complex Tab] Lovastatin [Mevacor] 20 mg PO DAILY 12/10/15 Ranitidine [Zantac] 150 mg PO BID 12/10/15 Acetaminophen [Tylenol Extra 500 mg PO PRN PRN 06/06/18 Strength] Amlodipine Besylate 5 mg PO DAILY 06/06/18 Aspirin [Aspirin EC] 81 mg PO DAILY 06/06/18 Biotin 10 mg PO DAILY 06/06/18 Calcium (Elemental) [[place] 500] 500 mg PO DAILY 06/06/18 Cetirizine HCl [Zyrtec] 10 mg PO DAILY 06/06/18 Lactobacillus Acidophilus 1 cap PO DAILY 06/06/18 [Probiotic] Lisinopril 20 mg PO DAILY 06/06/18 Magnesium 250 mg PO DAILY 06/06/18 Memantine HCl 10 mg PO BID 06/06/18 Multivitamin [Multiple Vitamins] 1 tab PO DAILY 06/06/18 Surgical History: - - Hysterectomy, bilateral total knee replacement, left total hip replacement. Psychiatric History: No pertinent psych hx BROKER ASSISTANT History: No pertinent BROKER ASSISTANT history Lives: With Family - Patient lives with her daughter. Smoking Status: Never smoker Tobacco Use: Non-smoker Alcohol: None Drugs: None - *Family History Maternal History Items: - - Patient has a maternal and paternal family history of stroke, heart disease and diabetes. Paternal History Items: - - Patient has a maternal and paternal family history of stroke, heart disease and diabetes. Review of Systems Constitutional: Denies: Chills, Fever Cardiovascular: Denies: Chest Pain, Claudication Gastrointestinal: Denies: Nausea, Vomiting Musculoskeletal: Denies: Foot Pain, Leg Pain Skin: Reports: Skin Changes, Wounds Neurological: Reports: Numbness Patient Problems: Active and Suspected Problems Chest pain (Acute) Ulcer of toe of left foot (Acute) Other specified peripheral vascular diseases (Suspected) - Physical Exam General: Alert, No apparent distress, Confused HEENT: Atraumatic Extremities: No cyanosis, Capillary Refill Less than 3 Seconds, No Calf Tenderness - Negative Leonor and Nino sign bilateral mild bilateral lower extremities and edema to left second toe is apparent, Diminished Peripheral Pulses, Edema Skin: Ulcer/ Wound - There is a callus with eschar and dried blood formation to the distal second toe upon removal of the underlying skin is atrophic. There is capillary fill time noted there is an ulcer with fibers and subcutaneous tissue. There is no exposed bone or purulence on expression. There is no odor proximal streaking. The toe in general does have edema and inflammation and is indurated., - Musculoskeletal: No Tenderness to Palpation of Joints or Extremities, Muscle Wasting, - - Second toe is rectus left foot Neurological: - - Lack of epicritic sensation to light touch and lack of positional sense with toe movement left foot Psych/Mental Status: Normal Affect, Appropriate Vital Signs Temp Pulse Resp BP Pulse Ox 97.7 F L 101 H 18 178/92 H 98 06/07/18 09:01 06/07/18 11:26 06/07/18 09:01 06/07/18 09:01 06/07/18 09:01 Oxygen Delivery Method Room Air Weight: 59.5 kg Body Mass Index (BMI) 28.3 Intake and Output for Last 24 Hours 06/05/18 06/06/18 06/07/18 23:59 23:59 23:59 Intake Total 810 / 810 Output Total 600 / 600 Balance 210 / 210 Laboratory Tests Past 24 Hrs 06/06/18 06/06/18 06/06/18 18:50 18:50 18:50 WBC 10.2 RBC 4.39 Hgb 14.9 Hct 42.5 MCV 96.8 MCH 33.9 H MCHC 35.1 RDW 12.2 RDW Differential 43.2 Plt Count 185 MPV 9.4 Immature Gran % (Auto) 0.200 Neut % (Auto) 68.2 Lymph % (Auto) 18.7 L [place] % (Auto) 11.9 H Eos % (Auto) 0.7 Baso % (Auto) 0.3 Absolute Neuts (auto) 7.0 Absolute Lymphs (auto) 1.90 Total Counted Not Reportable ESR PT 13.1 INR 1.0 APTT 29.6 Sodium 134 L Potassium 3.6 Chloride 99 Carbon Dioxide 29.0 Anion Gap 6 BUN 14 Creatinine 1.06 H Estim Creat Clear Calc 44.94 Est GFR (MDRD) Af Amer 65 Est GFR (MDRD) Non-Af 54 L BUN/Creatinine Ratio 13.2 Glucose 92 Lactic Acid Calcium 9.7 Magnesium Total Bilirubin AST ALT Alkaline Phosphatase Troponin I < 0.015 C-React Prot Ext Range Total Protein Albumin Globulin Albumin/Globulin Ratio Triglycerides Cholesterol LDL Cholesterol VLDL Cholesterol HDL Cholesterol Urine Color Urine Clarity Urine pH Ur Specific [place] Urine Protein Urine Glucose (UA) Urine Ketones Urine Occult Blood Urine Nitrite Urine Bilirubin Urine Urobilinogen Ur Leukocyte Esterase Urine RBC Urine WBC Ur Squamous Epith Cells Urine Bacteria Urine Mucus S.aureus Protein A PCR MRSA (PCR) 06/06/18 06/06/18 06/06/18 18:50 18:50 19:30 WBC RBC Hgb Hct MCV MCH MCHC RDW RDW Differential Plt Count MPV Immature Gran % (Auto) Neut % (Auto) Lymph % (Auto) [place] % (Auto) Eos % (Auto) Baso % (Auto) Absolute Neuts (auto) Absolute Lymphs (auto) Total Counted ESR 16 PT INR APTT Sodium Potassium Chloride Carbon Dioxide Anion Gap BUN Creatinine Estim Creat Clear Calc Est GFR (MDRD) Af Amer Est GFR (MDRD) Non-Af BUN/Creatinine Ratio Glucose Lactic Acid Calcium Magnesium 2.4 Total Bilirubin AST ALT Alkaline Phosphatase Troponin I C-React Prot Ext Range 62.50 H Total Protein Albumin Globulin Albumin/Globulin Ratio Triglycerides Cholesterol LDL Cholesterol VLDL Cholesterol HDL Cholesterol Urine Color Straw Urine Clarity Clear Urine pH 8.0 Ur Specific [place] 1.010 Urine Protein Negative Urine Glucose (UA) Normal Urine Ketones Negative Urine Occult Blood Negative Urine Nitrite Negative Urine Bilirubin Negative Urine Urobilinogen Normal Ur Leukocyte Esterase 25 H Urine RBC 0 SEEN Urine WBC 0 SEEN Ur Squamous Epith Cells 0 SEEN Urine Bacteria 0 SEEN Urine Mucus 0 SEEN S.aureus Protein A PCR MRSA (PCR) 06/06/18 06/06/18 06/06/18 21:10 21:15 22:30 WBC RBC Hgb Hct MCV MCH MCHC RDW RDW Differential Plt Count MPV Immature Gran % (Auto) Neut % (Auto) Lymph % (Auto) [place] % (Auto) Eos % (Auto) Baso % (Auto) Absolute Neuts (auto) Absolute Lymphs (auto) Total Counted ESR PT INR APTT Sodium Potassium Chloride Carbon Dioxide Anion Gap BUN Creatinine Estim Creat Clear Calc Est GFR (MDRD) Af Amer Est GFR (MDRD) Non-Af BUN/Creatinine Ratio Glucose Lactic Acid 0.8 Calcium Magnesium Total Bilirubin AST ALT Alkaline Phosphatase Troponin I < 0.015 C-React Prot Ext Range Total Protein Albumin Globulin Albumin/Globulin Ratio Triglycerides Cholesterol LDL Cholesterol VLDL Cholesterol HDL Cholesterol Urine Color Urine Clarity Urine pH Ur Specific [place] Urine Protein Urine Glucose (UA) Urine Ketones Urine Occult Blood Urine Nitrite Urine Bilirubin Urine Urobilinogen Ur Leukocyte Esterase Urine RBC Urine WBC Ur Squamous Epith Cells Urine Bacteria Urine Mucus S.aureus Protein A PCR NEGATIVE MRSA (PCR) Negative 0406/07/18 06/07/18 01:05 05:20 05:20 WBC 8.5 RBC 4.20 Hgb 14.0 Hct 40.2 MCV 95.7 MCH 33.3 H MCHC 34.8 RDW 11.8 RDW Differential 40.6 Plt Count 168 MPV 9.4 Immature Gran % (Auto) Neut % (Auto) Lymph % (Auto) [place] % (Auto) Eos % (Auto) Baso % (Auto) Absolute Neuts (auto) Absolute Lymphs (auto) Total Counted ESR PT INR APTT Sodium 137 Potassium 3.7 Chloride 103 Carbon Dioxide 27.0 Anion Gap 7 BUN 13 Creatinine 0.97 Estim Creat Clear Calc 46.35 Est GFR (MDRD) Af Amer 72 Est GFR (MDRD) Non-Af 59 L BUN/Creatinine Ratio 13.4 Glucose 129 H Lactic Acid Calcium 9.0 Magnesium Total Bilirubin 0.50 AST 24 ALT 27 Alkaline Phosphatase 114 Troponin I < 0.015 C-React Prot Ext Range Total Protein 7.0 Albumin 3.6 Globulin 3.4 Albumin/Globulin Ratio 1.1 Triglycerides 93 Cholesterol 142 LDL Cholesterol 56 VLDL Cholesterol 19 HDL Cholesterol 67 Urine Color Urine Clarity Urine pH Ur Specific [place] Urine Protein Urine Glucose (UA) Urine Ketones Urine Occult Blood Urine Nitrite Urine Bilirubin Urine Urobilinogen Ur Leukocyte Esterase Urine RBC Urine WBC Ur Squamous Epith Cells Urine Bacteria Urine Mucus S.aureus Protein A PCR MRSA (PCR) 06/07/18 05:20 WBC RBC Hgb Hct MCV MCH MCHC RDW RDW Differential Plt Count MPV Immature Gran % (Auto) Neut % (Auto) Lymph % (Auto) [place] % (Auto) Eos % (Auto) Baso % (Auto) Absolute Neuts (auto) Absolute Lymphs (auto) Total Counted ESR PT 13.8 INR 1.1 APTT 29.5 Sodium Potassium Chloride Carbon Dioxide Anion Gap BUN Creatinine Estim Creat Clear Calc Est GFR (MDRD) Af Amer Est GFR (MDRD) Non-Af BUN/Creatinine Ratio Glucose Lactic Acid Calcium Magnesium Total Bilirubin AST ALT Alkaline Phosphatase Troponin I C-React Prot Ext Range Total Protein Albumin Globulin Albumin/Globulin Ratio Triglycerides Cholesterol LDL Cholesterol VLDL Cholesterol HDL Cholesterol Urine Color Urine Clarity Urine pH Ur Specific [place] Urine Protein Urine Glucose (UA) Urine Ketones Urine Occult Blood Urine Nitrite Urine Bilirubin Urine Urobilinogen Ur Leukocyte Esterase Urine RBC Urine WBC Ur Squamous Epith Cells Urine Bacteria Urine Mucus S.aureus Protein A PCR MRSA (PCR) Assessment/Plan All Active Problems Chest pain (Acute) Ulcer of toe of left foot (Acute) Left second toe ulcer with infection Osteomyelitis workup in process Peripheral vascular disease suspected Malnutrition Other comorbidities: Dementia, hypertension I reviewed and discussed this case with the patient as well as her family members at his bedside. Her vital signs remained stable and she is afebrile at this time. The x-rays were reviewed without any evidence of soft tissue emphysema, foreign body, distinct osseous destruction or periosteal erosion adjacent to the ulcer site. The distal toe callus and eschar was removed and the ulcer site was better evaluated. To change dressing daily with Aquacel Ag. She was started on vancomycin and her culture that was obtained yesterday results are pending. So far there is gram-positive cocci growth only. Her blood cultures are negative so far as well. Infectious disease on consultation and recommends a bone scan. I also recommend this is followed with a white blood cell labeled scan to confirm if osteomyelitis is present. Overall clinically is fairly stable and I do not recommend surgical intervention at this time. Her labs are reviewed including white blood cell count of 8.5, ESR 16, C-reactive protein 62.5. Recommend keeping pressure off of this ulcer site by wearing a surgical shoe and bearing weight to her heel; she has a surgical shoe already and her family member will bring this up from the car. To optimize healing with nutritional supplementation; [place] was ordered. Thank you for the consultation. I will continue to follow her closely while in house. Josefina El DPM, [facility] [phone]
--- NOTE | 2018-06-07 13:36 | PCM.PROGNOTE ---
<Lita March - Last Filed: 06/07/18 13:49> Patient Problems: Active and Suspected Problems Chest pain (Acute) Ulcer of toe of left foot (Acute) Other specified peripheral vascular diseases (Suspected) Subjective: Patient seen and examined. Daughter at bedside. Patient reports neck pain and stiffness. Denies further chest pain. - Physical Exam General: Alert, Cooperative, No apparent distress HEENT: Atraumatic, PERRLA, EOMI, Normocephalic Oral: Moist Mucosa Neck: Supple, No JVD, Negative Carotid Bruits Lungs: Clear to auscultation, Normal air movement Cardiovascular: Regular rate, Regular Rhythm, Normal S1, Normal S2, No murmurs Abdomen: Bowel Sounds Present, Soft, Non Tender, Non-Distended Extremities: No clubbing, No edema, Capillary Refill Less than 3 Seconds Skin: No rashes, No breakdown, - - Left second toe distal cyanosis/necrosis. Musculoskeletal: No Tenderness to Palpation of Joints or Extremities Neurological: Cranial nerves II-XII grossly intact, Neuro grossly intact Psych/Mental Status: Flat Affect Vital Signs Temp Pulse Resp BP Pulse Ox 97.7 F L 101 H 18 178/92 H 94 06/07/18 09:01 06/07/18 11:26 06/07/18 09:01 06/07/18 09:01 06/07/18 13:25 Oxygen Delivery Method Room Air Weight: 131 lb 2.801 oz Body Mass Index (BMI) 28.3 Intake and Output for Last 24 Hours 06/05/18 06/06/18 06/07/18 23:59 23:59 23:59 Intake Total 810 / 810 Output Total 600 / 600 Balance 210 / 210 Microbiology Past 72 Hours 06/06/18 21:15 Gram Stain - Final Wound - Toe Laboratory Tests Past 24 Hrs 06/06/18 06/06/18 06/06/18 18:50 18:50 18:50 WBC 10.2 RBC 4.39 Hgb 14.9 Hct 42.5 MCV 96.8 MCH 33.9 H MCHC 35.1 RDW 12.2 RDW Differential 43.2 Plt Count 185 MPV 9.4 Immature Gran % (Auto) 0.200 Neut % (Auto) 68.2 Lymph % (Auto) 18.7 L [place] % (Auto) 11.9 H Eos % (Auto) 0.7 Baso % (Auto) 0.3 Absolute Neuts (auto) 7.0 Absolute Lymphs (auto) 1.90 Total Counted Not Reportable ESR PT 13.1 INR 1.0 APTT 29.6 Sodium 134 L Potassium 3.6 Chloride 99 Carbon Dioxide 29.0 Anion Gap 6 BUN 14 Creatinine 1.06 H Estim Creat Clear Calc 44.94 Est GFR (MDRD) Af Amer 65 Est GFR (MDRD) Non-Af 54 L BUN/Creatinine Ratio 13.2 Glucose 92 Lactic Acid Calcium 9.7 Magnesium Total Bilirubin AST ALT Alkaline Phosphatase Troponin I < 0.015 C-React Prot Ext Range Total Protein Albumin Globulin Albumin/Globulin Ratio Triglycerides Cholesterol LDL Cholesterol VLDL Cholesterol HDL Cholesterol Urine Color Urine Clarity Urine pH Ur Specific [place] Urine Protein Urine Glucose (UA) Urine Ketones Urine Occult Blood Urine Nitrite Urine Bilirubin Urine Urobilinogen Ur Leukocyte Esterase Urine RBC Urine WBC Ur Squamous Epith Cells Urine Bacteria Urine Mucus S.aureus Protein A PCR MRSA (PCR) 06/06/18 06/06/18 06/06/18 18:50 18:50 19:30 WBC RBC Hgb Hct MCV MCH MCHC RDW RDW Differential Plt Count MPV Immature Gran % (Auto) Neut % (Auto) Lymph % (Auto) [place] % (Auto) Eos % (Auto) Baso % (Auto) Absolute Neuts (auto) Absolute Lymphs (auto) Total Counted ESR 16 PT INR APTT Sodium Potassium Chloride Carbon Dioxide Anion Gap BUN Creatinine Estim Creat Clear Calc Est GFR (MDRD) Af Amer Est GFR (MDRD) Non-Af BUN/Creatinine Ratio Glucose Lactic Acid Calcium Magnesium 2.4 Total Bilirubin AST ALT Alkaline Phosphatase Troponin I C-React Prot Ext Range 62.50 H Total Protein Albumin Globulin Albumin/Globulin Ratio Triglycerides Cholesterol LDL Cholesterol VLDL Cholesterol HDL Cholesterol Urine Color Straw Urine Clarity Clear Urine pH 8.0 Ur Specific [place] 1.010 Urine Protein Negative Urine Glucose (UA) Normal Urine Ketones Negative Urine Occult Blood Negative Urine Nitrite Negative Urine Bilirubin Negative Urine Urobilinogen Normal Ur Leukocyte Esterase 25 H Urine RBC 0 SEEN Urine WBC 0 SEEN Ur Squamous Epith Cells 0 SEEN Urine Bacteria 0 SEEN Urine Mucus 0 SEEN S.aureus Protein A PCR MRSA (PCR) 06/06/18 06/06/18 06/06/18 21:10 21:15 22:30 WBC RBC Hgb Hct MCV MCH MCHC RDW RDW Differential Plt Count MPV Immature Gran % (Auto) Neut % (Auto) Lymph % (Auto) [place] % (Auto) Eos % (Auto) Baso % (Auto) Absolute Neuts (auto) Absolute Lymphs (auto) Total Counted ESR PT INR APTT Sodium Potassium Chloride Carbon Dioxide Anion Gap BUN Creatinine Estim Creat Clear Calc Est GFR (MDRD) Af Amer Est GFR (MDRD) Non-Af BUN/Creatinine Ratio Glucose Lactic Acid 0.8 Calcium Magnesium Total Bilirubin AST ALT Alkaline Phosphatase Troponin I < 0.015 C-React Prot Ext Range Total Protein Albumin Globulin Albumin/Globulin Ratio Triglycerides Cholesterol LDL Cholesterol VLDL Cholesterol HDL Cholesterol Urine Color Urine Clarity Urine pH Ur Specific [place] Urine Protein Urine Glucose (UA) Urine Ketones Urine Occult Blood Urine Nitrite Urine Bilirubin Urine Urobilinogen Ur Leukocyte Esterase Urine RBC Urine WBC Ur Squamous Epith Cells Urine Bacteria Urine Mucus S.aureus Protein A PCR NEGATIVE MRSA (PCR) Negative 06/07/18 06/07/18 06/07/18 01:05 05:20 05:20 WBC 8.5 RBC 4.20 Hgb 14.0 Hct 40.2 MCV 95.7 MCH 33.3 H MCHC 34.8 RDW 11.8 RDW Differential 40.6 Plt Count 168 MPV 9.4 Immature Gran % (Auto) Neut % (Auto) Lymph % (Auto) [place] % (Auto) Eos % (Auto) Baso % (Auto) Absolute Neuts (auto) Absolute Lymphs (auto) Total Counted ESR PT INR APTT Sodium 137 Potassium 3.7 Chloride 103 Carbon Dioxide 27.0 Anion Gap 7 BUN 13 Creatinine 0.97 Estim Creat Clear Calc 46.35 Est GFR (MDRD) Af Amer 72 Est GFR (MDRD) Non-Af 59 L BUN/Creatinine Ratio 13.4 Glucose 129 H Lactic Acid Calcium 9.0 Magnesium Total Bilirubin 0.50 AST 24 ALT 27 Alkaline Phosphatase 114 Troponin I < 0.015 C-React Prot Ext Range Total Protein 7.0 Albumin 3.6 Globulin 3.4 Albumin/Globulin Ratio 1.1 Triglycerides 93 Cholesterol 142 LDL Cholesterol 56 VLDL Cholesterol 19 HDL Cholesterol 67 Urine Color Urine Clarity Urine pH Ur Specific [place] Urine Protein Urine Glucose (UA) Urine Ketones Urine Occult Blood Urine Nitrite Urine Bilirubin Urine Urobilinogen Ur Leukocyte Esterase Urine RBC Urine WBC Ur Squamous Epith Cells Urine Bacteria Urine Mucus S.aureus Protein A PCR MRSA (PCR) 06/07/18 05:20 WBC RBC Hgb Hct MCV MCH MCHC RDW RDW Differential Plt Count MPV Immature Gran % (Auto) Neut % (Auto) Lymph % (Auto) [place] % (Auto) Eos % (Auto) Baso % (Auto) Absolute Neuts (auto) Absolute Lymphs (auto) Total Counted ESR PT 13.8 INR 1.1 APTT 29.5 Sodium Potassium Chloride Carbon Dioxide Anion Gap BUN Creatinine Estim Creat Clear Calc Est GFR (MDRD) Af Amer Est GFR (MDRD) Non-Af BUN/Creatinine Ratio Glucose Lactic Acid Calcium Magnesium Total Bilirubin AST ALT Alkaline Phosphatase Troponin I C-React Prot Ext Range Total Protein Albumin Globulin Albumin/Globulin Ratio Triglycerides Cholesterol LDL Cholesterol VLDL Cholesterol HDL Cholesterol Urine Color Urine Clarity Urine pH Ur Specific [place] Urine Protein Urine Glucose (UA) Urine Ketones Urine Occult Blood Urine Nitrite Urine Bilirubin Urine Urobilinogen Ur Leukocyte Esterase Urine RBC Urine WBC Ur Squamous Epith Cells Urine Bacteria Urine Mucus S.aureus Protein A PCR MRSA (PCR) Medical Necessity - Tobacco Use Smoking Status: Never smoker Tobacco Use: Non-smoker Assessment/Plan All Active Problems Chest pain (Acute) Ulcer of toe of left foot (Acute) 1. Atypical chest pain, musculoskeletal in nature-ACS ruled out. Chest x-ray on admission unremarkable. Troponin negative. EKG without ST-T changes. Patient underwent nuclear stress test which was negative for ischemia. 2. Left second toe infected ulcer, [id number] foot on admission shows mild erosive change of the second distal phalangeal tuft. Podiatry and infectious disease consulted. Wound culture pending. Vascular studies ordered per podiatry. Continue IV vancomycin and IV Levaquin. Continue with dressing changes per podiatry orders which includes Aquacel Ag to right second toe ulcer, cover with gauze daily. MRSA/MSSA PCR negative. 3. Neck pain-patient denies injury or trauma. Cervical spine x-ray shows multilevel degenerative changes with a grade 1 spondylolisthesis at C3-C4 with no demonstrated fracture or suspicious osseous lesion. PT/OT, PRN Tylenol. May use heat pad. 4. Dementia without behavioral disturbance-continue home memantine regimen. Patient lives with daughter who reports difficulty caring for patient due to progressive dementia. Daughter works and patient is at home alone for a significant amount of time during the day which daughter feels is no longer safe. Anticipate SNF at discharge. Fall precautions. 5. Chronic kidney disease stage III-stable. 6. Hypertension-stable, continue home amlodipine and lisinopril regimen. 7. Hyperlipidemia-continue statin. 8. Neuropathy bilateral lower extremities-continue home Tegretol regimen. 9. GERD-continue ranitidine. DVT prophylaxis-Lovenox subcu Discharge planning: Anticipate SNF pending pre-CERT and medically stable. This patient was seen by MONY Escalante under the supervision of Dr. Goins. <Selena Goins - Last Filed: 06/07/18 14:14> - Physical Exam Vital Signs Temp Pulse Resp BP Pulse Ox 97.7 F L 101 H 18 178/92 H 94 06/07/18 09:01 06/07/18 11:26 06/07/18 09:01 06/07/18 09:01 06/07/18 13:25 Oxygen Delivery Method Room Air Weight: 131 lb 2.801 oz Body Mass Index (BMI) 28.3 Intake and Output for Last 24 Hours 06/05/18 06/06/18 06/07/18 23:59 23:59 23:59 Intake Total 810 / 810 Output Total 600 / 600 Balance 210 / 210 Microbiology Past 72 Hours 06/06/18 21:15 Gram Stain - Final Wound - Toe Laboratory Tests Past 24 Hrs 06/06/18 06/06/18 06/06/18 18:50 18:50 18:50 WBC 10.2 RBC 4.39 Hgb 14.9 Hct 42.5 MCV 96.8 MCH 33.9 H MCHC 35.1 RDW 12.2 RDW Differential 43.2 Plt Count 185 MPV 9.4 Immature Gran % (Auto) 0.200 Neut % (Auto) 68.2 Lymph % (Auto) 18.7 L [place] % (Auto) 11.9 H Eos % (Auto) 0.7 Baso % (Auto) 0.3 Absolute Neuts (auto) 7.0 Absolute Lymphs (auto) 1.90 Total Counted Not Reportable ESR PT 13.1 INR 1.0 APTT 29.6 Sodium 134 L Potassium 3.6 Chloride 99 Carbon Dioxide 29.0 Anion Gap 6 BUN 14 Creatinine 1.06 H Estim Creat Clear Calc 44.94 Est GFR (MDRD) Af Amer 65 Est GFR (MDRD) Non-Af 54 L BUN/Creatinine Ratio 13.2 Glucose 92 Lactic Acid Calcium 9.7 Magnesium Total Bilirubin AST ALT Alkaline Phosphatase Troponin I < 0.015 C-React Prot Ext Range Total Protein Albumin Globulin Albumin/Globulin Ratio Triglycerides Cholesterol LDL Cholesterol VLDL Cholesterol HDL Cholesterol Urine Color Urine Clarity Urine pH Ur Specific [place] Urine Protein Urine Glucose (UA) Urine Ketones Urine Occult Blood Urine Nitrite Urine Bilirubin Urine Urobilinogen Ur Leukocyte Esterase Urine RBC Urine WBC Ur Squamous Epith Cells Urine Bacteria Urine Mucus S.aureus Protein A PCR MRSA (PCR) 06/06/18 06/06/18 06/06/18 18:50 18:50 19:30 WBC RBC Hgb Hct MCV MCH MCHC RDW RDW Differential Plt Count MPV Immature Gran % (Auto) Neut % (Auto) Lymph % (Auto) [place] % (Auto) Eos % (Auto) Baso % (Auto) Absolute Neuts (auto) Absolute Lymphs (auto) Total Counted ESR 16 PT INR APTT Sodium Potassium Chloride Carbon Dioxide Anion Gap BUN Creatinine Estim Creat Clear Calc Est GFR (MDRD) Af Amer Est GFR (MDRD) Non-Af BUN/Creatinine Ratio Glucose Lactic Acid Calcium Magnesium 2.4 Total Bilirubin AST ALT Alkaline Phosphatase Troponin I C-React Prot Ext Range 62.50 H Total Protein Albumin Globulin Albumin/Globulin Ratio Triglycerides Cholesterol LDL Cholesterol VLDL Cholesterol HDL Cholesterol Urine Color Straw Urine Clarity Clear Urine pH 8.0 Ur Specific [place] 1.010 Urine Protein Negative Urine Glucose (UA) Normal Urine Ketones Negative Urine Occult Blood Negative Urine Nitrite Negative Urine Bilirubin Negative Urine Urobilinogen Normal Ur Leukocyte Esterase 25 H Urine RBC 0 SEEN Urine WBC 0 SEEN Ur Squamous Epith Cells 0 SEEN Urine Bacteria 0 SEEN Urine Mucus 0 SEEN S.aureus Protein A PCR MRSA (PCR) 06/06/18 06/06/18 06/06/18 21:10 21:15 22:30 WBC RBC Hgb Hct MCV MCH MCHC RDW RDW Differential Plt Count MPV Immature Gran % (Auto) Neut % (Auto) Lymph % (Auto) [place] % (Auto) Eos % (Auto) Baso % (Auto) Absolute Neuts (auto) Absolute Lymphs (auto) Total Counted ESR PT INR APTT Sodium Potassium Chloride Carbon Dioxide Anion Gap BUN Creatinine Estim Creat Clear Calc Est GFR (MDRD) Af Amer Est GFR (MDRD) Non-Af BUN/Creatinine Ratio Glucose Lactic Acid 0.8 Calcium Magnesium Total Bilirubin AST ALT Alkaline Phosphatase Troponin I < 0.015 C-React Prot Ext Range Total Protein Albumin Globulin Albumin/Globulin Ratio Triglycerides Cholesterol LDL Cholesterol VLDL Cholesterol HDL Cholesterol Urine Color Urine Clarity Urine pH Ur Specific [place] Urine Protein Urine Glucose (UA) Urine Ketones Urine Occult Blood Urine Nitrite Urine Bilirubin Urine Urobilinogen Ur Leukocyte Esterase Urine RBC Urine WBC Ur Squamous Epith Cells Urine Bacteria Urine Mucus S.aureus Protein A PCR NEGATIVE MRSA (PCR) Negative 06/07/18 06/07/18 06/07/18 01:05 05:20 05:20 WBC 8.5 RBC 4.20 Hgb 14.0 Hct 40.2 MCV 95.7 MCH 33.3 H MCHC 34.8 RDW 11.8 RDW Differential 40.6 Plt Count 168 MPV 9.4 Immature Gran % (Auto) Neut % (Auto) Lymph % (Auto) [place] % (Auto) Eos % (Auto) Baso % (Auto) Absolute Neuts (auto) Absolute Lymphs (auto) Total Counted ESR PT INR APTT Sodium 137 Potassium 3.7 Chloride 103 Carbon Dioxide 27.0 Anion Gap 7 BUN 13 Creatinine 0.97 Estim Creat Clear Calc 46.35 Est GFR (MDRD) Af Amer 72 Est GFR (MDRD) Non-Af 59 L BUN/Creatinine Ratio 13.4 Glucose 129 H Lactic Acid Calcium 9.0 Magnesium Total Bilirubin 0.50 AST 24 ALT 27 Alkaline Phosphatase 114 Troponin I < 0.015 C-React Prot Ext Range Total Protein 7.0 Albumin 3.6 Globulin 3.4 Albumin/Globulin Ratio 1.1 Triglycerides 93 Cholesterol 142 LDL Cholesterol 56 VLDL Cholesterol 19 HDL Cholesterol 67 Urine Color Urine Clarity Urine pH Ur Specific [place] Urine Protein Urine Glucose (UA) Urine Ketones Urine Occult Blood Urine Nitrite Urine Bilirubin Urine Urobilinogen Ur Leukocyte Esterase Urine RBC Urine WBC Ur Squamous Epith Cells Urine Bacteria Urine Mucus S.aureus Protein A PCR MRSA (PCR) 06/07/18 05:20 WBC RBC Hgb Hct MCV MCH MCHC RDW RDW Differential Plt Count MPV Immature Gran % (Auto) Neut % (Auto) Lymph % (Auto) [place] % (Auto) Eos % (Auto) Baso % (Auto) Absolute Neuts (auto) Absolute Lymphs (auto) Total Counted ESR PT 13.8 INR 1.1 APTT 29.5 Sodium Potassium Chloride Carbon Dioxide Anion Gap BUN Creatinine Estim Creat Clear Calc Est GFR (MDRD) Af Amer Est GFR (MDRD) Non-Af BUN/Creatinine Ratio Glucose Lactic Acid Calcium Magnesium Total Bilirubin AST ALT Alkaline Phosphatase Troponin I C-React Prot Ext Range Total Protein Albumin Globulin Albumin/Globulin Ratio Triglycerides Cholesterol LDL Cholesterol VLDL Cholesterol HDL Cholesterol Urine Color Urine Clarity Urine pH Ur Specific [place] Urine Protein Urine Glucose (UA) Urine Ketones Urine Occult Blood Urine Nitrite Urine Bilirubin Urine Urobilinogen Ur Leukocyte Esterase Urine RBC Urine WBC Ur Squamous Epith Cells Urine Bacteria Urine Mucus S.aureus Protein A PCR MRSA (PCR) Assessment/Plan Patient seen by Lita SYKES under my supervision Patient was admitted with a complaint of atypical chest pain as well as neck tightness and left second toe ulcer. Patient seen and examined this morning. She still complains of some neck pain. Chest pain did not recur since admission. She denies any fever chills, palpitations or dizziness, diarrhea vomiting. She is awaiting review by podiatry of her left second toe ulcer. o/e: Vital Signs Height 4 ft 9 in Weight: 131 lb 2.801 oz Weight in Pounds 131.2 lbs Pulse Ox 94 Temperature 97.7 F Pulse Rate 101 Respiratory Rate 18 Blood Pressure 178/92 Blood Pressure Position Semi-Fowlers General: Alert, Cooperative, No apparent distress HEENT: Atraumatic, PERRLA, EOMI, Normocephalic Oral: Moist Mucosa Neck: Supple, No JVD, Negative Carotid Bruits Lungs: Clear to auscultation, Normal air movement Cardiovascular: Regular rate, Regular Rhythm, Normal S1, Normal S2, No murmurs Abdomen: Bowel Sounds Present, Soft, Non Tender, Non-Distended Extremities: No clubbing, No edema, Capillary Refill Less than 3 Seconds Skin: No rashes, No breakdown, - - Left second toe has dry, necrotic ulcer at tip of toe. Musculoskeletal: mild tenderness with palpation of posterior neck muscles Neurological: Cranial nerves II-XII grossly intact, Neuro grossly intact Psych/Mental Status: Flat Affect Patient had stress test this morning which was negative. She was started on iV vancomycin and levaquin on admission; ID consulted and changed levaquin to cefazolin, and Flagyl also added on. Though she has penicillin listed as an allergy, she has tolerated Augmentin in the past with no issue. Awaiting podiatry evaluation. Bone scan is pending. X-ray of her neck obtained this morning showed multilevel degenerative changes with a grade 1 spondylolisthesis at C3-4 with no demonstrated fracture or suspicious osseous lesion and this is likely the cause of her neck pain. Pain management with Tylenol. Further management as per podiatry evaluation. Rest of management as per Lita March [employer] CLERK-C's note which I reviewed and endorsed. Code Visit Inpatient E&M: 27214 Subs Hosp L2
--- NOTE | 2018-06-07 13:57 | PCM.HP.ID ---
Problem List (1) Ulcer of toe of left foot Status: Acute Qualifiers: Non-pressure ulcer stage: unspecified non-pressure ulcer stage Qualified Code(s): L97.529 - Non-pressure chronic ulcer of other part of left foot with unspecified severity Reason for Consult: osteo Consulted by: Dr. Goins History of Present Illness: The patient is a 77 year old F with neuropathy, presented to ED with 1-2 days of chest and neck pain, now improved. Also with several weeks of R 2nd toe ulcer, worsening discoloration over past 4-5 days. Toe turned purple/black with increased pain and swelling. No fever. Came to ED, pus was noted to be draining from toe. Started on vanc/levaquin, xray done, cxs sent. Full ROS performed and neg except as noted above. Color of toe better today. - Medical History Past Medical History (Chronic Problems): Chronic Problems Dementia (Chronic) HTN (hypertension) (Chronic) HLD (hyperlipidemia) (Chronic) GERD (gastroesophageal reflux disease) (Chronic) Neuropathy (Chronic) Allergic rhinitis (Chronic) Allergies/Adverse Reactions: Allergies cefaclor [From Ceclor] Allergy (Verified 06/06/18 18:43) Other DOESN'T REMEMBER REACTION Penicillins [PCN] Allergy (Verified 06/06/18 18:43) Hives prochlorperazine [From Compazine] Allergy (Verified 06/06/18 18:43) Unknown HYPOTHINE Allergy (Uncoded 10/27/16 10:11) Unknown Home Medications: Ambulatory Orders Medication Instructions Recorded Carbamazepine [Tegretol] 200 mg PO BID 12/10/15 Cholecalciferol (Vitamin D3) 10,000 unit PO QHS 12/10/15 [Vitamin D3] Cyanocobalamin (Vitamin B-12) 2,500 mcg PO DAILY 12/10/15 [Vitamin B12] Glucosam/Chond/MSM/[place]/Hyal 1 each PO BID 12/10/15 [Glucosamine-Chondr Complex Tab] Lovastatin [Mevacor] 20 mg PO DAILY 12/10/15 Ranitidine [Zantac] 150 mg PO BID 12/10/15 Acetaminophen [Tylenol Extra 500 mg PO PRN PRN 06/06/18 Strength] Amlodipine Besylate 5 mg PO DAILY 06/06/18 Aspirin [Aspirin EC] 81 mg PO DAILY 06/06/18 Biotin 10 mg PO DAILY 06/06/18 Calcium (Elemental) [[place] 500] 500 mg PO DAILY 06/06/18 Cetirizine HCl [Zyrtec] 10 mg PO DAILY 06/06/18 Lactobacillus Acidophilus 1 cap PO DAILY 06/06/18 [Probiotic] Lisinopril 20 mg PO DAILY 06/06/18 Magnesium 250 mg PO DAILY 06/06/18 Memantine HCl 10 mg PO BID 06/06/18 Multivitamin [Multiple Vitamins] 1 tab PO DAILY 06/06/18 - Social History SMOKING STATUS:: Never smoker Vital Signs Temp Pulse Resp BP Pulse Ox 97.7 F L 101 H 18 178/92 H 94 06/07/18 09:01 06/07/18 11:26 06/07/18 09:01 06/07/18 09:01 06/07/18 13:25 Oxygen Delivery Method Room Air Weight: 59.5 kg Body Mass Index (BMI) 28.3 Microbiology Past 72 Hours 06/06/18 21:15 Gram Stain - Final Wound - Toe Laboratory Tests Past 24 Hrs 06/06/18 06/06/18 06/06/18 18:50 18:50 18:50 WBC 10.2 RBC 4.39 Hgb 14.9 Hct 42.5 MCV 96.8 MCH 33.9 H MCHC 35.1 RDW 12.2 RDW Differential 43.2 Plt Count 185 MPV 9.4 Immature Gran % (Auto) 0.200 Neut % (Auto) 68.2 Lymph % (Auto) 18.7 L Esmeralda % (Auto) 11.9 H Eos % (Auto) 0.7 Baso % (Auto) 0.3 Absolute Neuts (auto) 7.0 Absolute Lymphs (auto) 1.90 Total Counted Not Reportable ESR PT 13.1 INR 1.0 APTT 29.6 Sodium 134 L Potassium 3.6 Chloride 99 Carbon Dioxide 29.0 Anion Gap 6 BUN 14 Creatinine 1.06 H Estim Creat Clear Calc 44.94 Est GFR (MDRD) Af Amer 65 Est GFR (MDRD) Non-Af 54 L BUN/Creatinine Ratio 13.2 Glucose 92 Lactic Acid Calcium 9.7 Magnesium Total Bilirubin AST ALT Alkaline Phosphatase Troponin I < 0.015 C-React Prot Ext Range Total Protein Albumin Globulin Albumin/Globulin Ratio Triglycerides Cholesterol LDL Cholesterol VLDL Cholesterol HDL Cholesterol Urine Color Urine Clarity Urine pH Ur Specific [place] Urine Protein Urine Glucose (UA) Urine Ketones Urine Occult Blood Urine Nitrite Urine Bilirubin Urine Urobilinogen Ur Leukocyte Esterase Urine RBC Urine WBC Ur Squamous Epith Cells Urine Bacteria Urine Mucus S.aureus Protein A PCR MRSA (PCR) 06/06/18 06/06/18 06/06/18 18:50 18:50 19:30 WBC RBC Hgb Hct MCV MCH MCHC RDW RDW Differential Plt Count MPV Immature Gran % (Auto) Neut % (Auto) Lymph % (Auto) Esmeralda % (Auto) Eos % (Auto) Baso % (Auto) Absolute Neuts (auto) Absolute Lymphs (auto) Total Counted ESR 16 PT INR APTT Sodium Potassium Chloride Carbon Dioxide Anion Gap BUN Creatinine Estim Creat Clear Calc Est GFR (MDRD) Af Amer Est GFR (MDRD) Non-Af BUN/Creatinine Ratio Glucose Lactic Acid Calcium Magnesium 2.4 Total Bilirubin AST ALT Alkaline Phosphatase Troponin I C-React Prot Ext Range 62.50 H Total Protein Albumin Globulin Albumin/Globulin Ratio Triglycerides Cholesterol LDL Cholesterol VLDL Cholesterol HDL Cholesterol Urine Color Straw Urine Clarity Clear Urine pH 8.0 Ur Specific [place] 1.010 Urine Protein Negative Urine Glucose (UA) Normal Urine Ketones Negative Urine Occult Blood Negative Urine Nitrite Negative Urine Bilirubin Negative Urine Urobilinogen Normal Ur Leukocyte Esterase 25 H Urine RBC 0 SEEN Urine WBC 0 SEEN Ur Squamous Epith Cells 0 SEEN Urine Bacteria 0 SEEN Urine Mucus 0 SEEN S.aureus Protein A PCR MRSA (PCR) 06/06/18 06/06/18 06/06/18 21:10 21:15 22:30 WBC RBC Hgb Hct MCV MCH MCHC RDW RDW Differential Plt Count MPV Immature Gran % (Auto) Neut % (Auto) Lymph % (Auto) Esmeralda % (Auto) Eos % (Auto) Baso % (Auto) Absolute Neuts (auto) Absolute Lymphs (auto) Total Counted ESR PT INR APTT Sodium Potassium Chloride Carbon Dioxide Anion Gap BUN Creatinine Estim Creat Clear Calc Est GFR (MDRD) Af Amer Est GFR (MDRD) Non-Af BUN/Creatinine Ratio Glucose Lactic Acid 0.8 Calcium Magnesium Total Bilirubin AST ALT Alkaline Phosphatase Troponin I < 0.015 C-React Prot Ext Range Total Protein Albumin Globulin Albumin/Globulin Ratio Triglycerides Cholesterol LDL Cholesterol VLDL Cholesterol HDL Cholesterol Urine Color Urine Clarity Urine pH Ur Specific [place] Urine Protein Urine Glucose (UA) Urine Ketones Urine Occult Blood Urine Nitrite Urine Bilirubin Urine Urobilinogen Ur Leukocyte Esterase Urine RBC Urine WBC Ur Squamous Epith Cells Urine Bacteria Urine Mucus S.aureus Protein A PCR NEGATIVE MRSA (PCR) Negative 06/07/18 06/07/18 06/07/18 01:05 05:20 05:20 WBC 8.5 RBC 4.20 Hgb 14.0 Hct 40.2 MCV 95.7 MCH 33.3 H MCHC 34.8 RDW 11.8 RDW Differential 40.6 Plt Count 168 MPV 9.4 Immature Gran % (Auto) Neut % (Auto) Lymph % (Auto) Esmeralda % (Auto) Eos % (Auto) Baso % (Auto) Absolute Neuts (auto) Absolute Lymphs (auto) Total Counted ESR PT INR APTT Sodium 137 Potassium 3.7 Chloride 103 Carbon Dioxide 27.0 Anion Gap 7 BUN 13 Creatinine 0.97 Estim Creat Clear Calc 46.35 Est GFR (MDRD) Af Amer 72 Est GFR (MDRD) Non-Af 59 L BUN/Creatinine Ratio 13.4 Glucose 129 H Lactic Acid Calcium 9.0 Magnesium Total Bilirubin 0.50 AST 24 ALT 27 Alkaline Phosphatase 114 Troponin I < 0.015 C-React Prot Ext Range Total Protein 7.0 Albumin 3.6 Globulin 3.4 Albumin/Globulin Ratio 1.1 Triglycerides 93 Cholesterol 142 LDL Cholesterol 56 VLDL Cholesterol 19 HDL Cholesterol 67 Urine Color Urine Clarity Urine pH Ur Specific [place] Urine Protein Urine Glucose (UA) Urine Ketones Urine Occult Blood Urine Nitrite Urine Bilirubin Urine Urobilinogen Ur Leukocyte Esterase Urine RBC Urine WBC Ur Squamous Epith Cells Urine Bacteria Urine Mucus S.aureus Protein A PCR MRSA (PCR) 06/07/18 05:20 WBC RBC Hgb Hct MCV MCH MCHC RDW RDW Differential Plt Count MPV Immature Gran % (Auto) Neut % (Auto) Lymph % (Auto) Esmeralda % (Auto) Eos % (Auto) Baso % (Auto) Absolute Neuts (auto) Absolute Lymphs (auto) Total Counted ESR PT 13.8 INR 1.1 APTT 29.5 Sodium Potassium Chloride Carbon Dioxide Anion Gap BUN Creatinine Estim Creat Clear Calc Est GFR (MDRD) Af Amer Est GFR (MDRD) Non-Af BUN/Creatinine Ratio Glucose Lactic Acid Calcium Magnesium Total Bilirubin AST ALT Alkaline Phosphatase Troponin I C-React Prot Ext Range Total Protein Albumin Globulin Albumin/Globulin Ratio Triglycerides Cholesterol LDL Cholesterol VLDL Cholesterol HDL Cholesterol Urine Color Urine Clarity Urine pH Ur Specific [place] Urine Protein Urine Glucose (UA) Urine Ketones Urine Occult Blood Urine Nitrite Urine Bilirubin Urine Urobilinogen Ur Leukocyte Esterase Urine RBC Urine WBC Ur Squamous Epith Cells Urine Bacteria Urine Mucus S.aureus Protein A PCR MRSA (PCR) - Other Studies Radiology: [] reviewed Other Studies: [] Route of nutrition/ use of supplements: [] Nutritional Intake: [] IV Site: [] Muhammad Catheter: [] - Physical Exam General: Alert, Cooperative, No apparent distress HEENT: Atraumatic, PERRLA, EOMI Neck: Supple, No Nodes Lungs: Clear to auscultation, Normal air movement Cardiovascular: Regular rate, Regular Rhythm Abdomen: Soft, Non Tender, Non-Distended Extremities: No edema Skin: Ulcer/ Wound - R 2nd toe with distal ulcer, surrounding inflammation IV Site: Peripheral Musculoskeletal: No Tenderness to Palpation of Joints or Extremities Neurological: Cranial nerves II-XII grossly intact - Assessment/Plan Antibiotics: [] Assessment/Plan: [] Active and Suspected Problems Chest pain (Acute) Ulcer of toe of left foot (Acute) Other specified peripheral vascular diseases (Suspected) R 2nd toe osteo - cx with GPCs on gram stain. She reports tolerating augmentin the past with no issue and daughter confirms. Will continue vanc, and change levaquin to cefepime/flagyl for broader GNR and anaerobic empiric coverage. Bone scan pending, podiatry to see. Will follow, thank you.
[2018-06-07] MEDS: metroNIDAZOLE 500 MG Tablet PO ×2 (14:21→21:28)
--- NOTE | 2018-06-07 15:01 | NURSING ---
wound photo: left 2nd toe
[2018-06-07] MEDS: 0.9% NaCl Peripheral Flush Adult/Peds IV (21:44)
[2018-06-07] MEDS: Vancomycin IV 500 MG/100 ML BAG 100 MG IV (23:32)
[2018-06-08] VITALS (13 sets, daily range): BP systolic 141–169; BP diastolic 59–107; PULSE 69–94; RESP 16–18; TEMP 36.7–37.3; O2SAT 95–99
[2018-06-08] MEDS: metroNIDAZOLE 500 MG Tablet PO ×3 (05:01→20:34)
[2018-06-08] MEDS: Enoxaparin 30 MG/0.3 ML Syringe SC (05:01)
[2018-06-08 06:17] LABS: Absolute Lymphocyte Count 1.35 X10^3/ul (0.83-4.51); Absolute Neutrophil Count 5.2 X10^3/uL (2.0-7.7); Basophil# 0.01 X10^3/uL; Basophil% 0.1 % (0-1); Eosinophil# 0.07 X10^3/uL; Eosinophils% 0.9 % (0-5); Hematocrit 35.6 % (37-47); Lymphocyte # 1.35 X10^3/ul (4.0); Lymphocyte % 17.4 % (19-41); Mean Corp Hgb Conc 33.7 g/gl (32-36); Mean Corpuscular Hgb 32.9 pg (27.0-32.0); Mean Corpuscular Volume 97.5 fL (81-99); Mean Platelet Vol. 9.2 fl (6.2-12.0); Monocyte% 14.2 % (0-10); Neutrophil % 67.3 % (47-70); Platelet Count 187 K/mm3 (150-450); RBC Distribution Width CV 11.9 % (11.6-14.6); RBC Distribution Width SD 40.9 fl (35.1-43.9); Red Blood Count 3.65 M/mm3 (4.2-5.4); White Blood Count 7.7 K/mm3 (4.4-11.0)
[2018-06-08 06:18] LABS: POSITIVE COUNT NO; POSITIVE DIFFERENTIAL NO; POSITIVE MORPHOLOGY NO
[2018-06-08 06:30] LABS: Anion Gap 8 (5-15); BUN 21 mg/dL (7-18); BUN/Creat Ratio 22.7 RATIO (10-20); Calcium,Total 8.5 mg/dL (8.5-10.1); Chloride 108 mmol/L (98-107); Creatinine, Serum 0.92 mg/dL (0.55-1.02); EST Glomerular Filtration Rate 63 mL/min (>60); Est Glom Filt Rate - Afr Amer 76 mL/min (>60); Estimated Creatinine Clearance 48.86 ml/min; Glucose 108 mg/dL (74-106); Potassium 4.1 mmol/L (3.5-5.1); Sodium Level 140 mmol/L (136-145)
[2018-06-08] MEDS: Lisinopril 20 MG Tablet PO (10:42)
[2018-06-08] MEDS: Memantine Hydrochloride 10 MG Tablet PO ×2 (10:43→20:34)
[2018-06-08] MEDS: amLODIPine 5 MG Tablet PO (10:43)
[2018-06-08] MEDS: Loratadine 10 MG Tablet PO (10:43)
[2018-06-08] MEDS: Acetaminophen 325 MG Tablet 650 MG PO (10:43)
[2018-06-08] MEDS: Aspirin E.C. 81 MG Tablet PO (10:43)
[2018-06-08] MEDS: carBAMazepine 200 MG Tablet PO ×2 (10:43→20:34)
[2018-06-08] MEDS: Famotidine 20 MG Tablet PO (10:43)
--- NOTE | 2018-06-08 10:50 | PCM.PROGNOTE ---
Patient Problems: Active and Suspected Problems Chest pain (Acute) Ulcer of toe of left foot (Acute) Other specified peripheral vascular diseases (Suspected) Subjective: The patient is a 77 year old female with significant past medical history of dementia, hypertension, and neuropathy was seen bedside this morning for left infected second toe ulcer. She has kept her dressing intact and wears a surgical shoe. She is continuing on antibiotics. She denies foot pain, fever, chill, nausea, vomiting. Her family at bedside. - Physical Exam General: Alert, Cooperative, Confused Extremities: Capillary Refill Less than 3 Seconds, No Calf Tenderness - negative rafael and harvey left, Diminished Peripheral Pulses, Edema - decreased left second toe Skin: Ulcer/ Wound - 0.5 x 0.5 x 0.1 cm fibrous ulcer distal left second toe post debridement (pre: 0.4 x 0.4 x 0.1) no probe to bone. erythema resolved. no odor or bogginess on palpation Musculoskeletal: No Tenderness to Palpation of Joints or Extremities, Muscle Wasting, - - rectus second toe, left. compartments of left foot remain soft to palpate Neurological: - - epicritic sensation is not intact to light touch consistent with neuropathy left foot Psych/Mental Status: Normal Affect, Appropriate Vital Signs Temp Pulse Resp BP Pulse Ox 98.2 F 85 18 152/107 H 95 06/08/18 05:04 06/08/18 06:59 06/08/18 05:04 06/08/18 05:04 06/08/18 07:13 Oxygen Delivery Method Room Air Weight: 59.5 kg Body Mass Index (BMI) 28.3 Intake and Output for Last 24 Hours 06/06/18 06/07/18 06/08/18 23:59 23:59 23:59 Intake Total 1532 / 1532 1247 / 1247 Output Total 800 / 800 775 / 775 Balance 732 / 732 472 / 472 Microbiology Past 72 Hours 06/06/18 21:15 Gram Stain - Final Wound - Toe Laboratory Tests Past 24 Hrs 06/08/18 06/08/18 06:05 06:05 WBC 7.7 RBC 3.65 L Hgb 12.0 Hct 35.6 L MCV 97.5 MCH 32.9 H MCHC 33.7 RDW 11.9 RDW Differential 40.9 Plt Count 187 MPV 9.2 Immature Gran % (Auto) 0.100 Neut % (Auto) 67.3 Lymph % (Auto) 17.4 L [place] % (Auto) 14.2 H Eos % (Auto) 0.9 Baso % (Auto) 0.1 Absolute Neuts (auto) 5.2 Absolute Lymphs (auto) 1.35 Total Counted Not Reportable Sodium 140 Potassium 4.1 Chloride 108 H Carbon Dioxide 24.0 Anion Gap 8 BUN 21 H Creatinine 0.92 Estim Creat Clear Calc 48.86 Est GFR (MDRD) Af Amer 76 Est GFR (MDRD) Non-Af 63 BUN/Creatinine Ratio 22.7 H Glucose 108 H Calcium 8.5 Medical Necessity - Tobacco Use Smoking Status: Never smoker Tobacco Use: Non-smoker Assessment/Plan All Active Problems Chest pain (Acute) Ulcer of toe of left foot (Acute) Left second toe ulcer with infection- improving Osteomyelitis workup in process Peripheral vascular disease; small vessel disease Malnutrition Other comorbidities: Dementia, hypertension I reviewed and discussed this case with the patient as well as her family members at his bedside. Her vital signs remained stable and she is afebrile at this time. The ulcer site was debrided excisionally today with a fifteen blade scalpel after verbal consent. She tolerated this well and did not have any pain secondary to her neuropathy; local anesthetic was not required. To change dressing daily with [employer]. She was started on vancomycin and her culture that was obtained previously are still pending. So far there is gram-positive cocci growth only. Her blood cultures are negative so far as well. Infectious disease on consultation and recommends a bone scan. I also recommend this is followed with a white blood cell labeled scan to confirm if osteomyelitis is present. Overall clinically is fairly stable and I do not recommend surgical intervention at this time. Local clinical improvement is significant this morning. 7.7 her labs are reviewed including white blood cell count of 7.7, previous ESR 16 and C-reactive protein 62.5. Her noninvasive vascular studies were also reviewed and discussed. She does appear to have triphasic PT and DP waveforms and her NIKI was 1.0 on the affected limb. It is noted her toe brachial index is 0.4 which is diminished and may be contributing to her delayed healing ulcer formation. I do not suspect that she has critical limb ischemia. to follow up with vascular surgery in the outpatient setting. Recommend keeping pressure off of this ulcer site by wearing a surgical shoe and bearing weight to her heel; she has a surgical shoe already and her family member will bring this up from the car. To optimize healing with nutritional supplementation. I will continue to follow while in house biweekly. Josefina El DPM, [facility] [phone]
--- NOTE | 2018-06-08 11:12 | NURSING ---
Student nurse charting reviewed.
[2018-06-08] MEDS: 0.9% Normal Saline 1,000 ML 100 ML IV ×2 (11:18→20:35)
--- NOTE | 2018-06-08 14:35 | PN_ITS ---
<Lita March - Last Filed: 06/08/18 14:35> Patient Problems: Active and Suspected Problems Chest pain (Acute) Ulcer of toe of left foot (Acute) Other specified peripheral vascular diseases (Suspected) Subjective: Patient seen and examined. Continues to complain of neck soreness. Denies other current complaints. - Physical Exam General: Alert, Cooperative, - - Confusion at baseline. HEENT: Atraumatic, PERRLA, EOMI, Normocephalic Oral: Moist Mucosa Neck: Supple, No JVD, Negative Carotid Bruits Lungs: Clear to auscultation, Normal air movement Cardiovascular: Regular rate, Regular Rhythm, Normal S1, Normal S2, No murmurs Abdomen: Bowel Sounds Present, Soft, Non Tender, Non-Distended Extremities: No clubbing, No cyanosis, No edema, Capillary Refill Less than 3 Seconds Skin: No rashes, No breakdown, - - Left second toe distal cyanosis/necrosis. Dressing intact. Musculoskeletal: No Tenderness to Palpation of Joints or Extremities Neurological: Cranial nerves II-XII grossly intact, Neuro grossly intact Psych/Mental Status: Flat Affect Vital Signs Temp Pulse Resp BP Pulse Ox 98.4 F 78 18 169/80 H 99 06/08/18 11:02 06/08/18 11:02 06/08/18 11:02 06/08/18 11:02 06/08/18 11:03 Oxygen Delivery Method Room Air Weight: 131 lb 2.801 oz Body Mass Index (BMI) 28.3 Intake and Output for Last 24 Hours 06/06/18 06/07/18 06/08/18 23:59 23:59 23:59 Intake Total 1532 / 1532 2096 / 2096 Output Total 800 / 800 1325 / 1325 Balance 732 / 732 771 / 771 Microbiology Past 72 Hours 06/06/18 21:15 Gram Stain - Final Wound - Toe Wound Culture - Preliminary Beta hemolytic organism Alpha hemolytic organism Laboratory Tests Past 24 Hrs 06/08/18 06/08/18 06:05 06:05 WBC 7.7 RBC 3.65 L Hgb 12.0 Hct 35.6 L MCV 97.5 MCH 32.9 H MCHC 33.7 RDW 11.9 RDW Differential 40.9 Plt Count 187 MPV 9.2 Immature Gran % (Auto) 0.100 Neut % (Auto) 67.3 Lymph % (Auto) 17.4 L [place] % (Auto) 14.2 H Eos % (Auto) 0.9 Baso % (Auto) 0.1 Absolute Neuts (auto) 5.2 Absolute Lymphs (auto) 1.35 Total Counted Not Reportable Sodium 140 Potassium 4.1 Chloride 108 H Carbon Dioxide 24.0 Anion Gap 8 BUN 21 H Creatinine 0.92 Estim Creat Clear Calc 48.86 Est GFR (MDRD) Af Amer 76 Est GFR (MDRD) Non-Af 63 BUN/Creatinine Ratio 22.7 H Glucose 108 H Calcium 8.5 Medical Necessity - Tobacco Use Smoking Status: Never smoker Tobacco Use: Non-smoker Assessment/Plan All Active Problems Chest pain (Acute) Ulcer of toe of left foot (Acute) 1. Atypical chest pain, musculoskeletal in nature-ACS ruled out. Chest x-ray on admission unremarkable. Troponin negative. EKG without ST-T changes. Patient underwent nuclear stress test which was negative for ischemia. 2. Left second toe infected ulcer, [id number] foot on admission shows mild erosive change of the second distal phalangeal tuft. Podiatry and infectious disease consulted. Wound culture showing beta and alpha hemolytic organisms. Vascular studies ordered per podiatry, reviewed. Continue IV vancomycin and IV cefepime. Continue with dressing changes per podiatry orders which includes Aquacel Ag to right second toe ulcer, cover with gauze daily. MRSA/MSSA PCR negative. Patient will follow up with podiatry as outpatient. 3. Neck pain-patient denies injury or trauma. Cervical spine x-ray shows multilevel degenerative changes with a grade 1 spondylolisthesis at C3-C4 with no demonstrated fracture or suspicious osseous lesion. PT/OT, PRN Tylenol. May use heat pad. 4. Dementia without behavioral disturbance-continue home memantine regimen. Patient lives with daughter who reports difficulty caring for patient due to progressive dementia. Daughter works and patient is at home alone for a significant amount of time during the day which daughter feels is no longer safe. Anticipate SNF at discharge. Fall precautions. 5. Chronic kidney disease stage III-stable. 6. Hypertension-stable, continue home amlodipine and lisinopril regimen. 7. Hyperlipidemia-continue statin. 8. Neuropathy bilateral lower extremities-continue home Tegretol regimen. 9. GERD-continue ranitidine. DVT prophylaxis-Lovenox subcu Discharge planning: Anticipate SNF pending pre-CERT and medically stable. This patient was seen by MONY Escaalnte under the supervision of Dr. Parker samuels. <Selena Goins - Last Filed: 06/08/18 15:15> - Physical Exam Vital Signs Temp Pulse Resp BP Pulse Ox 98.4 F 89 16 145/59 H 96 06/08/18 14:24 06/08/18 14:24 06/08/18 14:24 06/08/18 14:24 06/08/18 14:24 Oxygen Delivery Method Room Air Weight: 131 lb 2.801 oz Body Mass Index (BMI) 28.3 Intake and Output for Last 24 Hours 06/06/18 06/07/18 06/08/18 23:59 23:59 23:59 Intake Total 1532 / 1532 2096 / 2096 Output Total 800 / 800 1325 / 1325 Balance 732 / 732 771 / 771 Microbiology Past 72 Hours 06/06/18 21:15 Gram Stain - Final Wound - Toe Wound Culture - Preliminary Beta hemolytic organism Alpha hemolytic organism Laboratory Tests Past 24 Hrs 06/08/18 06/08/18 06:05 06:05 WBC 7.7 RBC 3.65 L Hgb 12.0 Hct 35.6 L MCV 97.5 MCH 32.9 H MCHC 33.7 RDW 11.9 RDW Differential 40.9 Plt Count 187 MPV 9.2 Immature Gran % (Auto) 0.100 Neut % (Auto) 67.3 Lymph % (Auto) 17.4 L [place] % (Auto) 14.2 H Eos % (Auto) 0.9 Baso % (Auto) 0.1 Absolute Neuts (auto) 5.2 Absolute Lymphs (auto) 1.35 Total Counted Not Reportable Sodium 140 Potassium 4.1 Chloride 108 H Carbon Dioxide 24.0 Anion Gap 8 BUN 21 H Creatinine 0.92 Estim Creat Clear Calc 48.86 Est GFR (MDRD) Af Amer 76 Est GFR (MDRD) Non-Af 63 BUN/Creatinine Ratio 22.7 H Glucose 108 H Calcium 8.5 Assessment/Plan Patient seen by Lita SYKES under my supervision Patient seen and examined this morning. She still complains of mild neck pain. Stress test was negative yesterday. Podiatry on board for left second toe ulcer. Labs and vitals reviewed. o/e: Vital Signs Height 4 ft 9 in Weight: 131 lb 2.801 oz Weight in Pounds 131.2 lbs Pulse Ox 96 Temperature 98.4 F Pulse Rate 89 Respiratory Rate 16 Blood Pressure 145/59 Blood Pressure Position Sitting General: Alert, Cooperative, No apparent distress HEENT: Atraumatic, PERRLA, EOMI, Normocephalic Oral: Moist Mucosa Neck: Supple, No JVD, Negative Carotid Bruits Lungs: Clear to auscultation, Normal air movement Cardiovascular: Regular rate, Regular Rhythm, Normal S1, Normal S2, No murmurs Abdomen: Bowel Sounds Present, Soft, Non Tender, Non-Distended Extremities: No clubbing, No edema, Capillary Refill Less than 3 Seconds Skin: No rashes, No breakdown, - - Left second toe has dry, necrotic ulcer at tip of toe. Musculoskeletal: mild tenderness with palpation of posterior neck muscles Neurological: Cranial nerves II-XII grossly intact, Neuro grossly intact Psych/Mental Status: Flat Affect Patient currently on IV vancomycin, cefazolin and Flagyl. She had arterial studies done of the lower extremities which showed normal bilateral lower extremity ABIs and abnormal digital brachial indices consistent with small vessel disease bilaterally. She had bedside debridement done of the left second toe ulcer by podiatry today. Per podiatry, no further surgical intervention planned. To optimise wound healing with nutritional supplementation. Keep pressure off ulcer site by wearing surgical shoe. ID on board. Currently awaiting placement. Continue antibiotics. Cervical spine xray also only showed spondylolisthesis at C3-4. On tylenol. Awaiting placement. Rest of management as per Lita March STATEMENT PROCESSOR-C's note which I have reviewed and endorse. Code Visit Inpatient E&M: 76483 Subs Hosp L3
[2018-06-08] MEDS: oxyCODONE 5 MG Tablet PO (16:20)
[2018-06-08] MEDS: Atorvastatin Calcium 10 MG Tablet PO (20:35)
[2018-06-08 23:06] LABS: Vancomycin, Trough Level 5.4 ug/mL (5.0-15.0)
[2018-06-08] MEDS: Vancomycin IV 1,000 MG/200 ML BAG 200 MG IV (23:31)
--- NOTE | 2018-06-08 23:38 | PCM.RX.CS ---
Consult Pharmacy has been consulted to manage selected antiobiotic: Vancomycin Type of Consult: Follow-up Suspected Infection: Skin/Soft tissue Prior Doses of Antibiotics Received/Current Regimen: Last dose of Vancomycin IV 500mg q24h received on 06/07/18 at 2332 Labs: Sodium 140 mmol/L (136-145) 06/08/18 06:05 Potassium 4.1 mmol/L (3.5-5.1) 06/08/18 06:05 Chloride 108 mmol/L (98-107) H 06/08/18 06:05 Carbon Dioxide 24.0 mmol/L (21.0-32.0) 06/08/18 06:05 Anion Gap 8 (5-15) 06/08/18 06:05 BUN 21 mg/dL (7-18) H 06/08/18 06:05 Creatinine 0.92 mg/dL (0.55-1.02) 06/08/18 06:05 Est GFR (MDRD) Af Amer 76 mL/min (>60) 06/08/18 06:05 Est GFR (MDRD) Non-Af 63 mL/min (>60) 06/08/18 06:05 BUN/Creatinine Ratio 22.7 RATIO (10-20) H 06/08/18 06:05 Glucose 108 mg/dL (74-106) H 06/08/18 06:05 Vancomycin Trough 5.4 ug/mL (5.0-15.0) 06/08/18 22:37 Microbiology: Microbiology 06/06/18 21:15 Wound - Toe Gram Stain - Final 06/06/18 21:15 Wound - Toe Wound Culture - Preliminary Beta hemolytic organism Alpha hemolytic organism Weight used for dosin.5 kg Estimated Creatinine Clearance: 49 ml/min Goal Trough: 10-15 mcg/mL Pharmacy Plan for Drug Dosing: Vancomycin trough returned on 06/08/18 at 5.4mg/L is below the target of 10-15 mg/L. The dose was increased to 1000mg IV q24h and started with the 06/08/18 dose at 2300. A trough is ordered for 06/10/182229 before the 3rd dose per pharmacy protocol. Pharmacy Service will continue to monitor and adjust dosing as required. Follow-Up Labs: Trough Vancomycin Labs to be done on [date and time ordered]: 06/10/182229
[2018-06-09] VITALS (10 sets, daily range): BP systolic 122–176; BP diastolic 66–85; PULSE 70–98; RESP 16–18; TEMP 36.8–37; O2SAT 95–97
[2018-06-09] MEDS: metroNIDAZOLE 500 MG Tablet PO ×3 (06:07→22:30)
[2018-06-09] MEDS: Enoxaparin 30 MG/0.3 ML Syringe SC (06:08)
[2018-06-09] MEDS: Memantine Hydrochloride 10 MG Tablet PO ×2 (08:32→22:30)
[2018-06-09] MEDS: Lisinopril 20 MG Tablet PO (08:32)
[2018-06-09] MEDS: Aspirin E.C. 81 MG Tablet PO (08:32)
[2018-06-09] MEDS: Loratadine 10 MG Tablet PO (08:32)
[2018-06-09] MEDS: carBAMazepine 200 MG Tablet PO ×2 (08:32→22:31)
[2018-06-09] MEDS: Famotidine 20 MG Tablet PO (08:32)
[2018-06-09] MEDS: amLODIPine 5 MG Tablet PO ×2 (08:32→14:47)
[2018-06-09] MEDS: 0.9% Normal Saline 1,000 ML 100 ML IV (12:28)
--- NOTE | 2018-06-09 13:35 | PCM.PROGNOTE ---
<Lita March - Last Filed: 06/09/18 13:41> Patient Problems: Active and Suspected Problems Chest pain (Acute) Ulcer of toe of left foot (Acute) Other specified peripheral vascular diseases (Suspected) Subjective: Patient seen and examined. Neck pain improved. Denies other current complaints. - Physical Exam General: Alert, Oriented x3, Cooperative HEENT: Atraumatic, PERRLA, EOMI, Normocephalic Oral: Moist Mucosa Neck: Supple, No JVD, Negative Carotid Bruits Lungs: Clear to auscultation, Normal air movement Cardiovascular: Regular rate, Regular Rhythm, Normal S1, Normal S2, No murmurs Abdomen: Bowel Sounds Present, Soft, Non Tender, Non-Distended Extremities: No clubbing, No cyanosis, No edema, Capillary Refill Less than 3 Seconds Skin: No rashes, No breakdown, - - Left second toe distal cyanosis/necrosis. Dressing intact. Musculoskeletal: No Tenderness to Palpation of Joints or Extremities Neurological: Cranial nerves II-XII grossly intact, Neuro grossly intact Psych/Mental Status: Flat Affect Vital Signs Temp Pulse Resp BP Pulse Ox 98.3 F 91 16 176/84 H 96 06/09/18 08:25 06/09/18 10:59 06/09/18 08:25 06/09/18 08:25 06/09/18 08:25 Oxygen Delivery Method Room Air Weight: 131 lb 2.801 oz Body Mass Index (BMI) 28.3 Intake and Output for Last 24 Hours 06/07/18 06/08/18 06/09/18 23:59 23:59 23:59 Intake Total 1532 / 1532 2953 / 2953 2381 / 2381 Output Total 800 / 800 1825 / 1825 1400 / 1400 Balance 732 / 732 1128 / 1128 981 / 981 Microbiology Past 72 Hours 06/06/18 21:15 Gram Stain - Final Wound - Toe Wound Culture - Preliminary Staphylococcus species Alpha Hemolytic Streptococcus 06/06/18 21:15 Blood Culture - Preliminary Blood Culture (Wb) - Anticubital Left No growth in 48 hours. 06/06/18 21:10 Blood Culture - Preliminary Blood Culture (Wb) - Anticubital Right No growth in 48 hours. Laboratory Tests Past 24 Hrs 06/08/18 22:37 Vancomycin Trough 5.4 Medical Necessity - Tobacco Use Smoking Status: Never smoker Tobacco Use: Non-smoker Assessment/Plan All Active Problems Chest pain (Acute) Ulcer of toe of left foot (Acute) 1. Atypical chest pain, musculoskeletal in nature-ACS ruled out. Chest x-ray on admission unremarkable. Troponin negative. EKG without ST-T changes. Patient underwent nuclear stress test which was negative for ischemia. 2. Left second toe infected ulcer, [id number] foot on admission shows mild erosive change of the second distal phalangeal tuft. Podiatry and infectious disease consulted. Wound culture showing beta and alpha hemolytic organisms. Vascular studies ordered per podiatry, reviewed. Continue IV vancomycin and IV cefepime. Continue with dressing changes per podiatry orders which includes Aquacel Ag to right second toe ulcer, cover with gauze daily. MRSA/MSSA PCR negative. Patient will follow up with podiatry as outpatient. 3. Neck pain-patient denies injury or trauma. Cervical spine x-ray shows multilevel degenerative changes with a grade 1 spondylolisthesis at C3-C4 with no demonstrated fracture or suspicious osseous lesion. PT/OT, PRN Tylenol. Improved. Continue heat pad use as needed. 4. Dementia without behavioral disturbance-continue home memantine regimen. Patient lives with daughter who reports difficulty caring for patient due to progressive dementia. Daughter works and patient is at home alone for a significant amount of time during the day which daughter feels is no longer safe. Anticipate SNF at discharge. Fall precautions. 5. Chronic kidney disease stage III-stable. 6. Hypertension-stable, continue home amlodipine and lisinopril regimen. 7. Hyperlipidemia-continue statin. 8. Neuropathy bilateral lower extremities-continue home Tegretol regimen. 9. GERD-continue ranitidine. DVT prophylaxis-Lovenox subcu Discharge planning: SNF pending pre-cert. This patient was seen by MONY Escalante under the supervision of Dr. Goins. <Selena Goins - Last Filed: 06/09/18 14:50> - Physical Exam Vital Signs Temp Pulse Resp BP Pulse Ox 98.3 F 91 16 176/84 H 96 06/09/18 08:25 06/09/18 10:59 06/09/18 08:25 06/09/18 08:25 06/09/18 08:25 Oxygen Delivery Method Room Air Weight: 131 lb 2.801 oz Body Mass Index (BMI) 28.3 Intake and Output for Last 24 Hours 06/07/18 06/08/18 06/09/18 23:59 23:59 23:59 Intake Total 1532 / 1532 2953 / 2953 2381 / 2381 Output Total 800 / 800 1825 / 1825 1400 / 1400 Balance 732 / 732 1128 / 1128 981 / 981 Microbiology Past 72 Hours 06/06/18 21:15 Gram Stain - Final Wound - Toe Wound Culture - Preliminary Staphylococcus species Alpha Hemolytic Streptococcus 06/06/18 21:15 Blood Culture - Preliminary Blood Culture (Wb) - Anticubital Left No growth in 48 hours. 06/06/18 21:10 Blood Culture - Preliminary Blood Culture (Wb) - Anticubital Right No growth in 48 hours. Laboratory Tests Past 24 Hrs 06/08/18 22:37 Vancomycin Trough 5.4 Assessment/Plan Patient seen by Lita SYKES under my supervision Patient seen and examined this morning. She still complains of mild neck pain. labs and vitals reviewed o/e: Vital Signs Height 4 ft 9 in Weight: 131 lb 2.801 oz Weight in Pounds 131.2 lbs Pulse Ox 96 Temperature 98.3 F Pulse Rate 91 Respiratory Rate 16 Blood Pressure 176/84 Blood Pressure Position Sitting General: Alert, Cooperative, No apparent distress HEENT: Atraumatic, PERRLA, EOMI, Normocephalic Oral: Moist Mucosa Neck: Supple, No JVD, Negative Carotid Bruits Lungs: Clear to auscultation, Normal air movement Cardiovascular: Regular rate, Regular Rhythm, Normal S1, Normal S2, No murmurs Abdomen: Bowel Sounds Present, Soft, Non Tender, Non-Distended Extremities: No clubbing, No edema, Capillary Refill Less than 3 Seconds Skin: No rashes, No breakdown, - - left foot wrapped in dressing. Musculoskeletal: mild tenderness with palpation of posterior neck muscles Neurological: Cranial nerves II-XII grossly intact, Neuro grossly intact Psych/Mental Status: Flat Affect Patient currently on IV vancomycin, cefepime and Flagyl. She had arterial studies done of the lower extremities which showed normal bilateral lower extremity ABIs and abnormal digital brachial indices consistent with small vessel disease bilaterally. She had bedside debridement done of the left second toe ulcer by podiatry. No further intervention planned. Keep nonweight bearing. Awaiting placement. Patient's blood pressure has also been running high since she came in. She has been on fluid since admission. Will DC fluids and monitor blood pressure. She is currently on amlodipine 10 mg daily and lisinopril 20 mg daily. In light of advanced age, would want to be too aggressive with blood pressure control. If blood pressure still remains elevated, will consider increasing lisinopril dose to 40 mg daily. Rest of management as per Lita March CROZER-C's note which I have reviewed and endorse. Code Visit Inpatient E&M: 08856 Subs Hosp L2
[2018-06-09] MEDS: oxyCODONE 5 MG Tablet PO (20:38)
[2018-06-09] MEDS: Atorvastatin Calcium 10 MG Tablet PO (22:31)
[2018-06-09] MEDS: 0.9% NaCl Peripheral Flush Adult/Peds IV (23:17)
[2018-06-09] MEDS: Morphine 2 MG/ML Syringe IV (23:17)
[2018-06-10] VITALS (11 sets, daily range): BP systolic 132–162; BP diastolic 57–91; PULSE 76–97; RESP 14–18; TEMP 36.6–37.1; O2SAT 94–96
[2018-06-10] MEDS: Enoxaparin 30 MG/0.3 ML Syringe SC (05:33)
[2018-06-10] MEDS: metroNIDAZOLE 500 MG Tablet PO ×3 (05:33→21:31)
[2018-06-10] MEDS: 0.9% NaCl Peripheral Flush Adult/Peds IV ×3 (05:33→21:32)
[2018-06-10] MEDS: Aspirin E.C. 81 MG Tablet PO (08:55)
[2018-06-10] MEDS: Loratadine 10 MG Tablet PO (08:56)
[2018-06-10] MEDS: Memantine Hydrochloride 10 MG Tablet PO ×2 (08:57→21:31)
[2018-06-10] MEDS: Famotidine 20 MG Tablet PO (08:58)
[2018-06-10] MEDS: carBAMazepine 200 MG Tablet PO ×2 (08:58→21:31)
[2018-06-10] MEDS: Lisinopril 20 MG Tablet PO (08:58)
[2018-06-10] MEDS: amLODIPine 10 MG Tablet PO (09:05)
--- NOTE | 2018-06-10 10:17 | CASEMGMT ---
Social Work: TC to Lorri. Lorri requesting updated clinicals to start pre cert. Clinicals faxed. EV Arora
--- NOTE | 2018-06-10 13:04 | NURSING ---
wound photo: left 2nd toe
--- NOTE | 2018-06-10 13:30 | PCM.PN.ID ---
Patient Problems: Active and Suspected Problems Chest pain (Acute) Ulcer of toe of left foot (Acute) Other specified peripheral vascular diseases (Suspected) Subjective: Feeling better, toe sore, no fever, no n/v/d. - Physical Exam General: Alert, Cooperative, No apparent distress Lungs: Clear to auscultation, Normal air movement Cardiovascular: Regular rate, Regular Rhythm Abdomen: Soft, Non Tender, Non-Distended Skin: No rashes, Ulcer/ Wound - L2nd toe Vital Signs Temp Pulse Resp BP Pulse Ox 98.7 F 93 14 162/82 H 96 06/10/18 08:00 06/10/18 08:00 06/10/18 08:00 06/10/18 08:00 06/10/18 08:00 Oxygen Delivery Method Room Air Weight: 59.5 kg Body Mass Index (BMI) 28.3 Intake and Output for Last 24 Hours 06/08/18 06/09/18 06/10/18 23:59 23:59 23:59 Intake Total 2953 / 2953 3415 / 3415 668 / 668 Output Total 1825 / 1825 2100 / 2100 325 / 325 Balance 1128 / 1128 1315 / 1315 343 / 343 Microbiology Past 72 Hours 06/06/18 21:15 Gram Stain - Final Wound - Toe Wound Culture - Preliminary Staphylococcus lugdunensis Strep not Strep pneumo 06/06/18 21:15 Blood Culture - Preliminary Blood Culture (Wb) - Anticubital Left No growth in 48 hours. 06/06/18 21:10 Blood Culture - Preliminary Blood Culture (Wb) - Anticubital Right No growth in 48 hours. Medical Necessity - Tobacco Use Smoking Status: Never smoker Tobacco Use: Non-smoker Route of nutrition/ use of supplements: [] Nutritional Intake: [] IV Site: [] Muhammad Catheter: [] - Assessment/Plan Antibiotics: [] Assessment/Plan: [] Active and Suspected Problems Chest pain (Acute) Ulcer of toe of left foot (Acute) Other specified peripheral vascular diseases (Suspected) R 2nd toe osteo - She reports tolerating augmentin the past with no issue and daughter confirms. Stop vanc. Cx with MS-S. lugdunensis, strep. Continue cefepime/flagyl for now. No issues with rash or itching. Will order bone/wbc scan. Will follow
--- NOTE | 2018-06-10 13:45 | PCM.PROGNOTE ---
<Lita March - Last Filed: 06/10/18 13:52> Patient Problems: Active and Suspected Problems Chest pain (Acute) Ulcer of toe of left foot (Acute) Other specified peripheral vascular diseases (Suspected) Subjective: Patient seen and examined. Resting comfortably in chair. No current complaints. No issues overnight. - Physical Exam General: Alert, Cooperative, No apparent distress HEENT: Atraumatic, PERRLA, EOMI, Normocephalic Neck: Supple, No JVD, Negative Carotid Bruits Lungs: Clear to auscultation, Normal air movement Cardiovascular: Regular rate, Regular Rhythm, Normal S1, Normal S2, No murmurs Abdomen: Bowel Sounds Present, Soft, Non Tender, Non-Distended Extremities: No clubbing, No cyanosis, No edema, Capillary Refill Less than 3 Seconds Skin: No rashes, No breakdown Musculoskeletal: No Tenderness to Palpation of Joints or Extremities Neurological: Cranial nerves II-XII grossly intact, Neuro grossly intact Psych/Mental Status: Flat Affect Vital Signs Temp Pulse Resp BP Pulse Ox 98.7 F 93 14 162/82 H 96 06/10/18 08:00 06/10/18 08:00 06/10/18 08:00 06/10/18 08:00 06/10/18 08:00 Oxygen Delivery Method Room Air Weight: 131 lb 2.801 oz Body Mass Index (BMI) 28.3 Intake and Output for Last 24 Hours 06/08/18 06/09/18 06/10/18 23:59 23:59 23:59 Intake Total 2953 / 2953 3415 / 3415 668 / 668 Output Total 1825 / 1825 2100 / 2100 325 / 325 Balance 1128 / 1128 1315 / 1315 343 / 343 Microbiology Past 72 Hours 06/06/18 21:15 Gram Stain - Final Wound - Toe Wound Culture - Preliminary Staphylococcus lugdunensis Strep not Strep pneumo 06/06/18 21:15 Blood Culture - Preliminary Blood Culture (Wb) - Anticubital Left No growth in 48 hours. 06/06/18 21:10 Blood Culture - Preliminary Blood Culture (Wb) - Anticubital Right No growth in 48 hours. Medical Necessity - Tobacco Use Smoking Status: Never smoker Tobacco Use: Non-smoker Assessment/Plan All Active Problems Cellulitis of left foot (Acute) Chest pain (Acute) Ulcer of toe of left foot (Acute) 1. Atypical chest pain, musculoskeletal in nature-ACS ruled out. Chest x-ray on admission unremarkable. Troponin negative. EKG without ST-T changes. Patient underwent nuclear stress test which was negative for ischemia. 2. Left second toe infected ulcer, [id number] foot on admission shows mild erosive change of the second distal phalangeal tuft. Podiatry and infectious disease consulted. Wound culture showing Staphylococcus lugdunensis and strep. Vascular studies ordered per podiatry, reviewed. Continue IV cefepime/PO flagyl. IV vancomycin discontinued. Continue with dressing changes per podiatry orders which includes Aquacel Ag to right second toe ulcer, cover with gauze daily. MRSA/MSSA PCR negative. Patient will follow up with podiatry as outpatient. Bone scan ordered to rule out osteomyelitis. 3. Neck pain-patient denies injury or trauma. Cervical spine x-ray shows multilevel degenerative changes with a grade 1 spondylolisthesis at C3-C4 with no demonstrated fracture or suspicious osseous lesion. PT/OT, PRN Tylenol. Improved. Continue heat pad use as needed. 4. Dementia without behavioral disturbance-continue home memantine regimen. Patient lives with daughter who reports difficulty caring for patient due to progressive dementia. Daughter works and patient is at home alone for a significant amount of time during the day which daughter feels is no longer safe. Anticipate SNF at discharge. Fall precautions. 5. Chronic kidney disease stage III-stable. 6. Hypertension-stable, continue home amlodipine and lisinopril regimen. 7. Hyperlipidemia-continue statin. 8. Neuropathy bilateral lower extremities-continue home Tegretol regimen. 9. GERD-continue ranitidine. DVT prophylaxis-Lovenox subcu Discharge planning: SNF pending pre-cert. This patient was seen by MONY Escalante under the supervision of Dr. Sanchez. <Giovany Sanchez - Last Filed: 06/10/18 16:13> Subjective: No new complaints. - Physical Exam General: Alert, No apparent distress HEENT: Atraumatic, Normocephalic Neck: - - Right paraspinal muscle tenderness on the cervical region extending to the upper trapezius on the right side. Lungs: Clear to auscultation, Normal air movement, No rhonchi, No wheeze Cardiovascular: Regular rate, Regular Rhythm, Normal S1, Normal S2 Abdomen: Bowel Sounds Present, No Hepato-splenomegaly Extremities: No edema, No Calf Tenderness Skin: No rashes, No breakdown Psych/Mental Status: Appropriate, Flat Affect Vital Signs Temp Pulse Resp BP Pulse Ox 36.9 C 97 14 138/91 H 96 06/10/18 14:00 06/10/18 15:22 06/10/18 14:00 06/10/18 14:00 06/10/18 14:00 Oxygen Delivery Method Room Air Weight: 59.5 kg Body Mass Index (BMI) 28.3 Intake and Output for Last 24 Hours 06/08/18 06/09/18 06/10/18 23:59 23:59 23:59 Intake Total 2953 / 2953 3415 / 3415 668 / 668 Output Total 1825 / 1825 2100 / 2100 325 / 325 Balance 1128 / 1128 1315 / 1315 343 / 343 Microbiology Past 72 Hours 06/06/18 21:15 Gram Stain - Final Wound - Toe Wound Culture - Preliminary Staphylococcus lugdunensis Strep not Strep pneumo 06/06/18 21:15 Blood Culture - Preliminary Blood Culture (Wb) - Anticubital Left No growth in 48 hours. 06/06/18 21:10 Blood Culture - Preliminary Blood Culture (Wb) - Anticubital Right No growth in 48 hours. Assessment/Plan Patient seen and examined independently. Data reviewed. I agree with the above note by the nurse practitioner. 1. Chest pain: Stress test negative. Not cardiac. 2.Infected ulcer of the left second toe: X-rays unremarkable. Bone scan ordered. On cefepime and Flagyl. Infectious disease and podiatry following. 3. Neck pain: likely due to muscle strain Patient requested that I contact her daughter, Sandra. I called the # on the white board ([phone]). Left message on voice mail. Code Visit Inpatient E&M: 61266 Subs Hosp L2
[2018-06-10] MEDS: Morphine 2 MG/ML Syringe IV (14:12)
--- NOTE | 2018-06-10 14:43 | CHAPLAIN ---
Type of Pastoral Visit _x__ Initial Visit ___ Follow-up Visit ___ On-call Visit ___ General Patient Visit ___ Spiritual Assessment ___ Family Conference ___ Bereavement ___ Rapid Response ___ Code Blue ___ Other (describe below) Pastoral Care Referral From _x__ Patient ___ Family ___ Nurse ___ Physician ___ Ticket Agent ___ Regional Controller ___ Other (describe below) Sacrament/Intervention _x__ Active listening ___ Anointing ___ Yazidi ___ Bereavement ___ Communion ___ Meaghan exploration ___ ___ Life review _x__ Prayer ___ Reconciliation ___ Sacrament of Sick _x__ Supportive presence ___ Wedding ___ Other (describe below) Pastoral Comments patient speaks of her neck as source of pain; pt has difficulty explaining her health need and apparently cannot come up with the right words to answer questions; pt cannot name her children or how many she has but says she has children; pt cannot name her scientology but says she has a scientology; pt is focused on her flower vase and asks if it is in danger of spilling but vase looks fine; otherwise pt is pleasant and welcomes the visit and prayers of the cnc specialist
[2018-06-10] MEDS: Atorvastatin Calcium 10 MG Tablet PO (21:31)
[2018-06-11] VITALS (8 sets, daily range): BP systolic 119–169; BP diastolic 66–80; PULSE 76–108; RESP 16–18; TEMP 36.2–36.8; O2SAT 93–97
[2018-06-11] MEDS: hydrALAZINE 20 MG/ML Vial 5 MG IV (04:12)
[2018-06-11] MEDS: 0.9% NaCl Peripheral Flush Adult/Peds IV (04:13)
[2018-06-11] MEDS: Enoxaparin 30 MG/0.3 ML Syringe SC (05:02)
[2018-06-11] MEDS: metroNIDAZOLE 500 MG Tablet PO (05:02)
--- NOTE | 2018-06-11 07:17 | PCM.PROGNOTE ---
Patient Problems: Active and Suspected Problems Chest pain (Acute) Ulcer of toe of left foot (Acute) Other specified peripheral vascular diseases (Suspected) Subjective: The patient is a 77 year old female with multiple comorbidities was seen bedside this morning for left infected second toe ulcer. She has kept her dressing intact and wears a surgical shoe. She denies foot pain, fever, chill, nausea, vomiting. - Physical Exam General: Alert, Oriented x3, Cooperative HEENT: Atraumatic Extremities: No cyanosis, Capillary Refill Less than 3 Seconds - Left foot, No Calf Tenderness - Leonor and Nino sign left lower extremity negative, Diminished Peripheral Pulses, Edema - Reduced to left second toe, - - No pain with ulcer manipulation or toe, left second Skin: Ulcer/ Wound - Fibrous and granular base distal left second toe ulcer site without deep tissue exposure deep probing, necrosis, odor, erythema, streaking, acute signs of local infection. Her edema and erythema have resolved to the site. There is no interdigital maceration or other open lesions noted Musculoskeletal: No Tenderness to Palpation of Joints or Extremities, Muscle Wasting, - - rectus left foot left second toe. compartments soft to palpate foot, left Neurological: - - lack of epicritic sensation to light touch consistent with neuropathy left foot Psych/Mental Status: Normal Affect, Appropriate Vital Signs Temp Pulse Resp BP Pulse Ox 98.0 F 90 18 139/67 H 93 06/11/18 04:07 06/11/18 04:59 06/11/18 04:07 06/11/18 04:59 06/11/18 04:07 Oxygen Delivery Method Room Air Weight: 59.5 kg Body Mass Index (BMI) 28.3 Intake and Output for Last 24 Hours 06/09/18 06/10/18 06/11/18 23:59 23:59 23:59 Intake Total 3415 / 3415 1419 / 1419 86.6 / 86.6 Output Total 2100 / 2100 525 / 525 200 / 200 Balance 1315 / 1315 894 / 894 -113.4 / -113.4 Microbiology Past 72 Hours 06/06/18 21:15 Gram Stain - Final Wound - Toe Wound Culture - Preliminary Staphylococcus lugdunensis Strep not Strep pneumo 06/06/18 21:15 Blood Culture - Preliminary Blood Culture (Wb) - Anticubital Left No growth in 48 hours. 06/06/18 21:10 Blood Culture - Preliminary Blood Culture (Wb) - Anticubital Right No growth in 48 hours. Medical Necessity - Tobacco Use Smoking Status: Never smoker Tobacco Use: Non-smoker Assessment/Plan All Active Problems Cellulitis of left foot (Acute) Chest pain (Acute) Ulcer of toe of left foot (Acute) Left second toe ulcer with infection-resolved Osteomyelitis workup in process pending bone scan/wbc labeled scan Peripheral vascular disease; small vessel disease Malnutrition Other comorbidities I reviewed and discussed this case with the patient this morning. Her vital signs remained stable and she is afebrile at this time. To change dressing daily with [employer]. White blood cell count was 7.7 this morning. Wound cultures demonstrate Staphylococcus lugdenesis and strep bacteria. She has been transitioned to IV ceftriaxone at this time and the plan is for her to get discharged on Omnicef or Augmentin orally. her blood cultures are negative so far as well. Infectious disease on consultation and recommends a bone scan with wbc labeled scan included if indicated after the ceretec. She is demonstrating good clinical improvement and is very stable at this time. To follow up with vascular surgery in the outpatient setting. Recommend keeping pressure off of this ulcer site by wearing a surgical shoe and bearing weight to her heel; she has a surgical shoe already and her family member will bring this up from the car. To optimize healing with nutritional supplementation. I will continue to follow her while in house weekly. It is ok to otherwise discharge from a podiatry standpoint after the bone scan is complete. To follow up at the wound center with Dr. El or Dr. Morgan after discharge. Josefina El DPM, [facility] [phone]
--- NOTE | 2018-06-11 08:00 | NURSING ---
leaving floor for bone scan at this time
--- NOTE | 2018-06-11 09:30 | NM_ITS ---
CLINICAL: 77-year-old female with suspected left forefoot second digit osteomyelitis. LIMITED 99m Tc MDP THREE PHASE BONE SCINTIGRAPHY COMPARISON: Plain film radiograph report left foot 06/06/2018 FINDINGS: Following the intravenous administration of 26.0 mCi of 99m Tc MDP, three-phase bone acquisitions of the distal lower extremities reveal: 1. The flow and immediate static blood pool acquisitions demonstrate normal-symmetric arterial phase distribution of the radiopharmaceutical to the bilateral forefoot. There is venous hyperemia manifest in the region of the second digit of the left forefoot. 2. Delayed images depict persistent increased tracer concentration noted in the region of the distal phalanx of the second digit of the left forefoot corresponding to the blood pool changes. 3. Facilitated tracer distribution is otherwise noted in the bilateral ankle articulations, right-left midfoot, the left first metatarsophalangeal and interphalangeal articulations of the first digit of the left forefoot. 4. The remaining limited skeletal structures are scintigraphically unremarkable. NM/Bone Scan Three Phase IMPRESSION: 1. The increase in radiopharmaceutical concentration identified in the distal phalanx of the second digit of the left forefoot on the blood pool and delayed projections is consistent with soft tissue inflammation-cellulitis with a high likelihood of active infection of bone-osteomyelitis. If the specificity of this finding remains in question, correlation with labeled leukocyte imaging is recommended. 2. Degenerative arthritis is otherwise expressed in the bilateral ankles, midfoot bilaterally, the first digit of the left forefoot. Electronically Signed: Alek Marsh DO at 12:25 EDT Tel , Service support ,
[2018-06-11] MEDS: Memantine Hydrochloride 10 MG Tablet PO (10:24)
[2018-06-11] MEDS: Famotidine 20 MG Tablet PO (10:24)
[2018-06-11] MEDS: Lisinopril 20 MG Tablet PO (10:24)
[2018-06-11] MEDS: amLODIPine 10 MG Tablet PO (10:24)
[2018-06-11] MEDS: Loratadine 10 MG Tablet PO (10:24)
[2018-06-11] MEDS: carBAMazepine 200 MG Tablet PO (10:24)
[2018-06-11] MEDS: Aspirin E.C. 81 MG Tablet PO (10:24)
--- NOTE | 2018-06-11 11:28 | PCM.PN.ID ---
Patient Problems: Active and Suspected Problems Chest pain (Acute) Ulcer of toe of left foot (Acute) Other specified peripheral vascular diseases (Suspected) Subjective: Feeling ok, no fever, no n/v/d. - Physical Exam General: Alert, Cooperative, No apparent distress Lungs: Clear to auscultation, Normal air movement Cardiovascular: Regular rate, Regular Rhythm Abdomen: Soft, Non Tender, Non-Distended Skin: Ulcer/ Wound - bandaged Vital Signs Temp Pulse Resp BP Pulse Ox 97.1 F L 88 16 139/75 H 96 06/11/18 10:04 06/11/18 10:04 06/11/18 10:04 06/11/18 10:04 06/11/18 10:04 Oxygen Delivery Method Room Air Weight: 59.5 kg Body Mass Index (BMI) 28.3 Intake and Output for Last 24 Hours 06/09/18 06/10/18 06/11/18 23:59 23:59 23:59 Intake Total 3415 / 3415 1419 / 1419 86.6 / 86.6 Output Total 2100 / 2100 525 / 525 200 / 200 Balance 1315 / 1315 894 / 894 -113.4 / -113.4 Microbiology Past 72 Hours 06/06/18 21:15 Gram Stain - Final Wound - Toe Wound Culture - Final Staphylococcus lugdunensis Streptococcus mitis/ oralis 06/06/18 21:15 Blood Culture - Preliminary Blood Culture (Wb) - Anticubital Left No growth in 48 hours. 06/06/18 21:10 Blood Culture - Preliminary Blood Culture (Wb) - Anticubital Right No growth in 48 hours. Medical Necessity - Tobacco Use Smoking Status: Never smoker Tobacco Use: Non-smoker Route of nutrition/ use of supplements: [] Nutritional Intake: [] IV Site: [] Muhammad Catheter: [] - Assessment/Plan Antibiotics: [] Assessment/Plan: [] Active and Suspected Problems Chest pain (Acute) Ulcer of toe of left foot (Acute) Other specified peripheral vascular diseases (Suspected) R 2nd toe osteo - She reports tolerating augmentin the past with no issue and daughter confirms. Cx with MS-S. lugdunensis, strep. Narrow abx to ceftriaxone. May be able to be discharged home on omnicef or augmentin. Pending bone scan. Wbc scan can be completed as an outpt. Will follow
--- NOTE | 2018-06-11 11:46 | PCM.DC.POD ---
Weight Bearing Status: Partial weight bearing - heel walk with surgical shoe left Call your doctor if your incision/area has: Continuous Slow Oozing, Sudden Increased Bleeding, Increased Pain/ Swelling, Increased Redness, Foul Smelling Discharge, Swelling at the incision site Call your doctor if you observe: Fever of 101 or Higher, Calf discomfort, Uncontrolled pain Cleanse incision/area with: Soap & Water, - - change left second toe ulcer site daily with aquacel ag and dry gauze Allergies/Adverse Reactions: Allergies cefaclor [From Ceclor] Allergy (Verified 06/06/18 18:43) Other DOESN'T REMEMBER REACTION Penicillins [PCN] Allergy (Verified 06/06/18 18:43) Hives prochlorperazine [From Compazine] Allergy (Verified 06/06/18 18:43) Unknown HYPOTHINE Allergy (Uncoded 10/27/16 10:11) Unknown Medications to take at Discharge Carbamazepine [Tegretol] 200 mg PO BID 12/10/15 Cholecalciferol (Vitamin D3) [Vitamin D3] 10,000 unit PO QHS 12/10/15 Cyanocobalamin (Vitamin B-12) [Vitamin B12] 2,500 mcg PO DAILY 12/10/15 Glucosam/Chond/MSM/[place]/Hyal [Glucosamine-Chondr Complex Tab] 1 each PO BID 12/10/15 Lovastatin [Mevacor] 20 mg PO DAILY 12/10/15 Ranitidine [Zantac] 150 mg PO BID 12/10/15 Acetaminophen [Tylenol Extra Strength] 500 mg PO PRN PRN 06/06/18 Amlodipine Besylate 5 mg PO DAILY 06/06/18 Aspirin [Aspirin EC] 81 mg PO DAILY 06/06/18 Biotin 10 mg PO DAILY 06/06/18 Calcium (Elemental) [[place] 500] 500 mg PO DAILY 06/06/18 Cetirizine HCl [Zyrtec] 10 mg PO DAILY 06/06/18 Lactobacillus Acidophilus [Probiotic] 1 cap PO DAILY 06/06/18 Lisinopril 20 mg PO DAILY 06/06/18 Magnesium 250 mg PO DAILY 06/06/18 Memantine HCl 10 mg PO BID 06/06/18 Multivitamin [Multiple Vitamins] 1 tab PO DAILY 06/06/18 Primary Care Physician: Filiberto Robles DO [Primary Care Provider] - Test Results: Test results from this visit will be discussed in further detail at your follow-up appointment, if applicable. Please Follow Up With: Wound care center in 1 week Please Follow Up With: Reddy Hansen MD When: within a month of discharge; call office to schedule for vascular referral
--- NOTE | 2018-06-11 11:53 | PCM.EXTCARCO ---
- Diet 06/07/18 09:01 Diet: Cardiac/Low Cholesterol - Routine Orders/Code Status Enema Type: Fleetz Enema Frequency: Daily PRN Suppository Type: Dulcolax 10mg Suppository Frequency: Daily PRN Routine Lab Work: - - CBC, BMP Q Week Code Status: Full Code - Wound(s) Left 2nd toe Wound Type: ischemic ulcer Dressing Change: AntiMicrobial (Aquacel AG, etc) - Suggestions for Active Care Change Position every (hours): 2 Times a day to sit in chair: 3 - Therapies Physical Therapy: Eval and Treat Occupational Therapy: Eval and Treat - Problem/Diagnosis (1) Chest pain Status: Acute Current Visit: Yes (2) Ulcer of toe of left foot Status: Acute Current Visit: Yes (3) Dementia Status: Chronic Current Visit: No (4) HTN (hypertension) Status: Chronic Current Visit: No (5) HLD (hyperlipidemia) Status: Chronic Current Visit: No (6) GERD (gastroesophageal reflux disease) Status: Chronic Current Visit: No (7) Neuropathy Status: Chronic Current Visit: No - Allergies/Procedures Done in Hospital Allergies/Adverse Reactions: Allergies cefaclor [From Ceclor] Allergy (Verified 06/06/18 18:43) Other DOESN'T REMEMBER REACTION Penicillins [PCN] Allergy (Verified 06/06/18 18:43) Hives prochlorperazine [From Compazine] Allergy (Verified 06/06/18 18:43) Unknown HYPOTHINE Allergy (Uncoded 10/27/16 10:11) Unknown Procedures: Nuclear Stress Test - Type of Care/Length of Stay Estimated LOS: Convalescent Care Less Than 30 days Type of Care Needed: Skilled Rehab Potential: Fair Prognosis: Fair - Additional Orders/Day of Discharge Additional Orders: Apply Aquacel Ag to left second toe ulcer, cover with gauze and paper tape daily. H&P will serve as current which was dated: 06/06/18 Day of Discharge: 06/11/18 - Dietary and Speech Recommendations Dietitian Recommendations/Changes: Rec liberalize diet to Regular d/t s/s of malnutrition and hx dementia. Current wt as able. Rec continue ensure enlive on medpass. - Follow Up Care Primary Care Physician: Filiberto Robles DO [Primary Care Provider] - Please follow up with your Primary Care Physician in: 1 Week Please Follow Up With: Wound Care Center When: 1 Week Please Follow Up With: Reddy Hansen MD When: within a month of discharge; call office to schedule for vascular referral
--- NOTE | 2018-06-11 12:49 | CASEMGMT ---
Social Work: TC from Lorri at [facility] who states that insurance pre cert has been obtained. Spoke with patient who states that her family can transport and is giving this permission to call daughter. TC to daughter Arvin. Arvin states that she can transport patient to [facility] after work today. LASHANDA completed and faxed to [facility] with copy in [facility] MR Transfer to extended care, med list and LASHANDA faxed to Lorri. TC to Lorri and voice mail message left regarding patient's discharge time and that family will transport. PLAN: Patient to be discharged to [facility] today for skilled care. [place]
--- NOTE | 2018-06-11 13:41 | PCM.DC.SUM ---
<Lita March - Last Filed: 06/11/18 14:04> Discharge Date and Diagnosis Date of Admission: 06/06/18 Date of Discharge: 06/11/18 - Primary Discharge Diagnosis Active and Suspected Problems 1. Atypical chest pain, musculoskeletal in nature 2. Left second toe infected ulcer, with osteomyelitis 3. Dementia without behavioral disturbance 4. Chronic kidney disease stage III 5. Hypertension 6. Hyperlipidemia 7. Neuropathy bilateral lower extremities 8. GERD - Secondary Discharge Diagnosis Chronic Problems Dementia (Chronic) HTN (hypertension) (Chronic) HLD (hyperlipidemia) (Chronic) GERD (gastroesophageal reflux disease) (Chronic) Neuropathy (Chronic) Allergic rhinitis (Chronic) Hospital Course and Treatment Imaging Results: Diagnostic Data Head CTA 06/06/18 18:54 IMPRESSION: Atherosclerotic plaque of the carotid bulbs, otherwise negative bilateral cervical carotid and vertebral arteries. Electronically Signed: Alycia Mahoney MD at 20:19 EDT Tel , Service support , Neck CTA 06/06/18 18:54 IMPRESSION: Atherosclerotic plaque of the carotid bulbs, otherwise negative bilateral cervical carotid and vertebral arteries. Electronically Signed: Alycia Mahoney MD at 20:19 EDT Tel , Service support , Chest X-Ray 06/06/18 19:15 IMPRESSION: No acute pulmonary process Electronically Signed: Sudhakar Lama MD at 19:37 EDT , Service support , Foot X-Ray 06/06/18 22:15 IMPRESSION: Question mild erosive change of the second distal phalangeal tuft. Consider MRI with contrast if there is suspicion of osteomyelitis. Soft tissue swelling of the second digit. Electronically Signed: Alycia Mahoney MD at 22:44 EDT Tel , Service support , Cervical Spine X-Ray 06/07/18 09:56 IMPRESSION: Multilevel degenerative changes with a grade 1 spondylolisthesis at C3-4, no demonstrated fracture or suspicious osseous lesion Electronically Signed: Sudhakar Lama MD at 12:45 EDT , Service support , Bone Scan Nuclear Medicine 06/11/18 09:30 IMPRESSION: 1. The increase in radiopharmaceutical concentration identified in the distal phalanx of the second digit of the left forefoot on the blood pool and delayed projections is consistent with soft tissue inflammation-cellulitis with a high likelihood of active infection of bone-osteomyelitis. If the specificity of this finding remains in question, correlation with labeled leukocyte imaging is recommended. 2. Degenerative arthritis is otherwise expressed in the bilateral ankles, midfoot bilaterally, the first digit of the left forefoot. Electronically Signed: Alek Marsh DO at 12:25 EDT Tel , Service support , Consultations 06/06/18 22:12 Consult: Onc/Wound/brand recorder Routine Comment: Dr. Green- ID Dr. El- Podiatry Operations: None Procedures: Stress test Summary of Care Provided: The patient is a 77 year old F admitted 06/06/18 due to chest pain and left second toe ulcer. 1. Atypical chest pain, musculoskeletal in nature-ACS ruled out. Chest x-ray on admission unremarkable. Troponin negative. EKG without ST-T changes. Patient underwent nuclear stress test which was negative for ischemia. 2. Left second toe infected ulcer with [id number] foot on admission shows mild erosive change of the second distal phalangeal tuft. Podiatry and infectious disease consulted. Wound culture showing Staphylococcus lugdunensis and strep. Vascular studies ordered per podiatry, reviewed. Continue with dressing changes per podiatry orders which includes Aquacel Ag to right second toe ulcer, cover with gauze daily. MRSA/MSSA PCR negative. Bone scan with high suspicion for osteomyelitis. Discussed with infectious disease. Patient will be discharged on Omnicef 300 mg p.o. twice daily for 40 days at discharge. Follow-up with wound center/podiatry in 1 [address] Follow up with Dr. Hansen within one month for further vascular evaluation. 3. Neck strain-patient denies injury or trauma. Cervical spine x-ray shows multilevel degenerative changes with a grade 1 spondylolisthesis at C3-C4 with no demonstrated fracture or suspicious osseous lesion. PT/OT, PRN Tylenol. Improved. Continue heat pad use as needed. 4. Dementia without behavioral disturbance-continue home memantine regimen. Patient lives with daughter who reports difficulty caring for patient due to progressive dementia. Daughter works and patient is at home alone for a significant amount of time during the day which daughter feels is no longer safe. SNF [facility] [place]. 5. Chronic kidney disease stage III-stable. 6. Hypertension-stable, continue home amlodipine and lisinopril regimen. 7. Hyperlipidemia-continue statin. 8. Neuropathy bilateral lower extremities-continue home Tegretol regimen. 9. GERD-continue ranitidine. General: Alert, Cooperative, No apparent distress HEENT: Atraumatic, PERRLA, EOMI, Normocephalic Neck: Supple, No JVD, Negative Carotid Bruits Lungs: Clear to auscultation, Normal air movement Cardiovascular: Regular rate, Regular Rhythm, Normal S1, Normal S2, No murmurs Abdomen: Bowel Sounds Present, Soft, Non Tender, Non-Distended Extremities: No clubbing, No cyanosis, No edema, Capillary Refill Less than 3 Seconds Skin: No rashes, No breakdown Musculoskeletal: No Tenderness to Palpation of Joints or Extremities Neurological: Cranial nerves II-XII grossly intact, Neuro grossly intact Psych/Mental Status: Flat Affect Patient seen and examined prior to discharge. Physical assessment as noted above. Patient is stable for discharge with follow up recommendations as noted above. This patient was seen by MONY Escalante under the supervision of Dr. Sanchez. - Physical Exam Vital Signs Temp Pulse Resp BP Pulse Ox 97.1 F L 88 16 139/75 H 96 06/11/18 10:04 06/11/18 10:04 06/11/18 10:04 06/11/18 10:04 06/11/18 10:04 Oxygen Delivery Method Room Air Weight: 131 lb 2.801 oz Body Mass Index (BMI) 28.3 Intake and Output for Last 24 Hours 06/09/18 06/10/18 06/11/18 23:59 23:59 23:59 Intake Total 3415 / 3415 1419 / 1419 326.6 / 326.6 Output Total 2100 / 2100 525 / 525 450 / 450 Balance 1315 / 1315 894 / 894 -123.4 / -123.4 Microbiology Past 72 Hours 06/06/18 21:15 Gram Stain - Final Wound - Toe Wound Culture - Final Staphylococcus lugdunensis Streptococcus mitis/ oralis 06/06/18 21:15 Blood Culture - Preliminary Blood Culture (Wb) - Anticubital Left No growth in 48 hours. 06/06/18 21:10 Blood Culture - Preliminary Blood Culture (Wb) - Anticubital Right No growth in 48 hours. Weight Bearing Status: Partial weight bearing - heel walk with surgical shoe left Call your doctor if your incision/area has: Continuous Slow Oozing, Sudden Increased Bleeding, Increased Pain/ Swelling, Increased Redness, Foul Smelling Discharge, Swelling at the incision site Call your doctor if you observe: Fever of 101 or Higher, Calf discomfort, Uncontrolled pain Cleanse incision/area with: Soap & Water, - - change left second toe ulcer site daily with aquacel ag and dry gauze Home Medications: Medications to take at Discharge Carbamazepine [Tegretol] 200 mg PO BID 12/10/15 Cholecalciferol (Vitamin D3) [Vitamin D3] 10,000 unit PO QHS 12/10/15 Cyanocobalamin (Vitamin B-12) [Vitamin B12] 2,500 mcg PO DAILY 12/10/15 Glucosam/Chond/MSM/[place]/Hyal [Glucosamine-Chondr Complex Tab] 1 each PO BID 12/10/15 Lovastatin [Mevacor] 20 mg PO DAILY 12/10/15 Ranitidine [Zantac] 150 mg PO BID 12/10/15 Acetaminophen [Tylenol Extra Strength] 500 mg PO PRN PRN 06/06/18 Amlodipine Besylate 5 mg PO DAILY 06/06/18 Aspirin [Aspirin EC] 81 mg PO DAILY 06/06/18 Biotin 10 mg PO DAILY 06/06/18 Calcium (Elemental) [[place] 500] 500 mg PO DAILY 06/06/18 Cetirizine HCl [Zyrtec] 10 mg PO DAILY 06/06/18 Lactobacillus Acidophilus [Probiotic] 1 cap PO DAILY 06/06/18 Lisinopril 20 mg PO DAILY 06/06/18 Magnesium 250 mg PO DAILY 06/06/18 Memantine HCl 10 mg PO BID 06/06/18 Multivitamin [Multiple Vitamins] 1 tab PO DAILY 06/06/18 Cefdinir [Omnicef [equiv]] 300 mg PO Q12 capsule 06/11/18 Primary Care Physician: Filiberto Robles DO [Primary Care Provider] - Please follow up with your Primary Care Physician in: 1 Week Please Follow Up With: Wound Care Center When: 1 Week Please Follow Up With: Reddy Hansen MD When: within a month of discharge; call office to schedule for vascular referral Disposition: Snf facility Minutes spent on discharge:: 35 Patient Condition:: Stable Medical Necessity - Tobacco Use Smoking Status: Never smoker Tobacco Use: Non-smoker Meaningful Use Info Meaningful Use Diagnoses (Choose all that apply): None applicable <Giovany Sanchez - Last Filed: 06/11/18 14:31> Discharge Date and Diagnosis - Secondary Discharge Diagnosis Chronic Problems Dementia (Chronic) HTN (hypertension) (Chronic) HLD (hyperlipidemia) (Chronic) GERD (gastroesophageal reflux disease) (Chronic) Neuropathy (Chronic) Allergic rhinitis (Chronic) Hospital Course and Treatment Imaging Results: 06/11/18 09:30 Bone Scan Three Phase [NM] Routine Consultations 06/06/18 22:12 Consult: Onc/Wound/brand recorder Routine Comment: Operations: None Procedures: Stress test Summary of Care Provided: Patient seen and examined independently. Data reviewed. I agree with the above note by the nurse practitioner. The patient is a 77 year old F presented with confusion from baseline. On patient was also found to have a necrotic left second toe distal tip. Patient also had chest pain. Patient underwent a workup for the chest pain with a stress test that was unremarkable. For her left second toe infected ulcer, cultures grew out Staphylococcus and strep. Bone scan was positive for osteomyelitis. Patient will need to follow-up with vascular surgery in the outpatient setting and to keep pressure off the ulcer in the meantime. [] - Physical Exam General: Alert, No apparent distress HEENT: Atraumatic, Normocephalic Oral: Moist Mucosa, No Gingival or Mucosal Lesions/ Ulcerations Neck: No Nodes, Thyroid Normal Size and Texture Lungs: Clear to auscultation, Normal air movement Cardiovascular: Regular rate, Regular Rhythm, Normal S1, Normal S2, No murmurs Abdomen: Bowel Sounds Present, Soft, Non Tender, Non-Distended, No Hepato-splenomegaly Extremities: No edema, No Calf Tenderness Skin: No rashes, No breakdown Psych/Mental Status: Normal Affect, Appropriate Vital Signs Temp Pulse Resp BP Pulse Ox 36.2 C L 88 16 139/75 H 96 06/11/18 10:04 06/11/18 10:04 06/11/18 10:04 06/11/18 10:04 06/11/18 10:04 Oxygen Delivery Method Room Air Weight: 59.5 kg Body Mass Index (BMI) 28.3 Intake and Output for Last 24 Hours 06/09/18 06/10/18 06/11/18 23:59 23:59 23:59 Intake Total 3415 / 3415 1419 / 1419 326.6 / 326.6 Output Total 2100 / 2100 525 / 525 450 / 450 Balance 1315 / 1315 894 / 894 -123.4 / -123.4 Microbiology Past 72 Hours 06/06/18 21:15 Gram Stain - Final Wound - Toe Wound Culture - Final Staphylococcus lugdunensis Streptococcus mitis/ oralis 06/06/18 21:15 Blood Culture - Preliminary Blood Culture (Wb) - Anticubital Left No growth in 48 hours. 06/06/18 21:10 Blood Culture - Preliminary Blood Culture (Wb) - Anticubital Right No growth in 48 hours. Discharge Diet: No Restrictions Weight Bearing Status: Partial weight bearing Call your doctor if your incision/area has: Continuous Slow Oozing, Sudden Increased Bleeding, Increased Pain/ Swelling, Increased Redness, Foul Smelling Discharge, Swelling at the incision site Call your doctor if you observe: Fever of 101 or Higher, Calf discomfort, Uncontrolled pain Cleanse incision/area with: Soap & Water, - Disposition: Snf facility Minutes spent on discharge:: 35 Patient Condition:: Stable Medical Necessity - Tobacco Use Smoking Status: Never smoker Tobacco Use: Non-smoker Meaningful Use Info Meaningful Use Diagnoses (Choose all that apply): None applicable Code Visit Inpatient E&M: 15867 Disch Hosp
--- NOTE | 2018-06-11 13:46 | DS.PCM_ITS ---
<Lita March - Last Filed: 06/11/18 14:04> Discharge Date and Diagnosis Date of Admission: 06/06/18 Date of Discharge: 06/11/18 - Primary Discharge Diagnosis Active and Suspected Problems 1. Atypical chest pain, musculoskeletal in nature 2. Left second toe infected ulcer, with osteomyelitis 3. Dementia without behavioral disturbance 4. Chronic kidney disease stage III 5. Hypertension 6. Hyperlipidemia 7. Neuropathy bilateral lower extremities 8. GERD - Secondary Discharge Diagnosis Chronic Problems Dementia (Chronic) HTN (hypertension) (Chronic) HLD (hyperlipidemia) (Chronic) GERD (gastroesophageal reflux disease) (Chronic) Neuropathy (Chronic) Allergic rhinitis (Chronic) Hospital Course and Treatment Imaging Results: Diagnostic Data Head CTA 06/06/18 18:54 IMPRESSION: Atherosclerotic plaque of the carotid bulbs, otherwise negative bilateral cervical carotid and vertebral arteries. Electronically Signed: Alycia Mahoney MD at 20:19 EDT Tel , Service support , Neck CTA 06/06/18 18:54 IMPRESSION: Atherosclerotic plaque of the carotid bulbs, otherwise negative bilateral cervical carotid and vertebral arteries. Electronically Signed: Alycia Mahoney MD at 20:19 EDT Tel , Service support , Chest X-Ray 06/06/18 19:15 IMPRESSION: No acute pulmonary process Electronically Signed: Sudhakar Lama MD at 19:37 EDT , Service support , Foot X-Ray 06/06/18 22:15 IMPRESSION: Question mild erosive change of the second distal phalangeal tuft. Consider MRI with contrast if there is suspicion of osteomyelitis. Soft tissue swelling of the second digit. Electronically Signed: Alycia Mahoney MD at 22:44 EDT Tel , Service support , Cervical Spine X-Ray 06/07/18 09:56 IMPRESSION: Multilevel degenerative changes with a grade 1 spondylolisthesis at C3-4, no demonstrated fracture or suspicious osseous lesion Electronically Signed: Sudhakar Lama MD at 12:45 EDT , Service support , Bone Scan Nuclear Medicine 06/11/18 09:30 IMPRESSION: 1. The increase in radiopharmaceutical concentration identified in the distal phalanx of the second digit of the left forefoot on the blood pool and delayed projections is consistent with soft tissue inflammation-cellulitis with a high likelihood of active infection of bone-osteomyelitis. If the specificity of this finding remains in question, correlation with labeled leukocyte imaging is recommended. 2. Degenerative arthritis is otherwise expressed in the bilateral ankles, midfoot bilaterally, the first digit of the left forefoot. Electronically Signed: Alek Marsh DO at 12:25 EDT Tel , Service support , Consultations 06/06/18 22:12 Consult: Onc/Wound/dress cutter Routine Comment: Dr. Green- ID Dr. El- Podiatry Operations: None Procedures: Stress test Summary of Care Provided: The patient is a 77 year old F admitted 06/06/18 due to chest pain and left second toe ulcer. 1. Atypical chest pain, musculoskeletal in nature-ACS ruled out. Chest x-ray on admission unremarkable. Troponin negative. EKG without ST-T changes. Patient underwent nuclear stress test which was negative for ischemia. 2. Left second toe infected ulcer with [id number] foot on admission shows mild erosive change of the second distal phalangeal tuft. Podiatry and infectious disease consulted. Wound culture showing Staphylococcus lugdunensis and strep. Vascular studies ordered per podiatry, reviewed. Continue with dressing changes per podiatry orders which includes Aquacel Ag to right second toe ulcer, cover with gauze daily. MRSA/MSSA PCR negative. Bone scan with high suspicion for osteomyelitis. Discussed with infectious disease. Patient will be discharged on Omnicef 300 mg p.o. twice daily for 40 days at discharge. Follow-up with wound center/podiatry in 1 Week. Follow up with Dr. Hansen within one month for further vascular evaluation. 3. Neck strain-patient denies injury or trauma. Cervical spine x-ray shows multilevel degenerative changes with a grade 1 spondylolisthesis at C3-C4 with no demonstrated fracture or suspicious osseous lesion. PT/OT, PRN Tylenol. Improved. Continue heat pad use as needed. 4. Dementia without behavioral disturbance-continue home memantine regimen. Patient lives with daughter who reports difficulty caring for patient due to progressive dementia. Daughter works and patient is at home alone for a significant amount of time during the day which daughter feels is no longer safe. SNF at [place]. 5. Chronic kidney disease stage III-stable. 6. Hypertension-stable, continue home amlodipine and lisinopril regimen. 7. Hyperlipidemia-continue statin. 8. Neuropathy bilateral lower extremities-continue home Tegretol regimen. 9. GERD-continue ranitidine. General: Alert, Cooperative, No apparent distress HEENT: Atraumatic, PERRLA, EOMI, Normocephalic Neck: Supple, No JVD, Negative Carotid Bruits Lungs: Clear to auscultation, Normal air movement Cardiovascular: Regular rate, Regular Rhythm, Normal S1, Normal S2, No murmurs Abdomen: Bowel Sounds Present, Soft, Non Tender, Non-Distended Extremities: No clubbing, No cyanosis, No edema, Capillary Refill Less than 3 Seconds Skin: No rashes, No breakdown Musculoskeletal: No Tenderness to Palpation of Joints or Extremities Neurological: Cranial nerves II-XII grossly intact, Neuro grossly intact Psych/Mental Status: Flat Affect Patient seen and examined prior to discharge. Physical assessment as noted above. Patient is stable for discharge with follow up recommendations as noted above. This patient was seen by MONY Escalante under the supervision of Dr. Sanchez. - Physical Exam Vital Signs Temp Pulse Resp BP Pulse Ox 97.1 F L 88 16 139/75 H 96 06/11/18 10:04 06/11/18 10:04 06/11/18 10:04 06/11/18 10:04 06/11/18 10:04 Oxygen Delivery Method Room Air Weight: 131 lb 2.801 oz Body Mass Index (BMI) 28.3 Intake and Output for Last 24 Hours 06/09/18 06/10/18 06/11/18 23:59 23:59 23:59 Intake Total 3415 / 3415 1419 / 1419 326.6 / 326.6 Output Total 2100 / 2100 525 / 525 450 / 450 Balance 1315 / 1315 894 / 894 -123.4 / -123.4 Microbiology Past 72 Hours 06/06/18 21:15 Gram Stain - Final Wound - Toe Wound Culture - Final Staphylococcus lugdunensis Streptococcus mitis/ oralis 06/06/18 21:15 Blood Culture - Preliminary Blood Culture (Wb) - Anticubital Left No growth in 48 hours. 06/06/18 21:10 Blood Culture - Preliminary Blood Culture (Wb) - Anticubital Right No growth in 48 hours. Weight Bearing Status: Partial weight bearing - heel walk with surgical shoe left Call your doctor if your incision/area has: Continuous Slow Oozing, Sudden Increased Bleeding, Increased Pain/ Swelling, Increased Redness, Foul Smelling Discharge, Swelling at the incision site Call your doctor if you observe: Fever of 101 or Higher, Calf discomfort, Uncontrolled pain Cleanse incision/area with: Soap & Water, - - change left second toe ulcer site daily with aquacel ag and dry gauze Home Medications: Medications to take at Discharge Carbamazepine [Tegretol] 200 mg PO BID 12/10/15 Cholecalciferol (Vitamin D3) [Vitamin D3] 10,000 unit PO QHS 12/10/15 Cyanocobalamin (Vitamin B-12) [Vitamin B12] 2,500 mcg PO DAILY 12/10/15 Glucosam/Chond/MSM/[place]/Hyal [Glucosamine-Chondr Complex Tab] 1 each PO BID 12/10/15 Lovastatin [Mevacor] 20 mg PO DAILY 12/10/15 Ranitidine [Zantac] 150 mg PO BID 12/10/15 Acetaminophen [Tylenol Extra Strength] 500 mg PO PRN PRN 06/06/18 Amlodipine Besylate 5 mg PO DAILY 06/06/18 Aspirin [Aspirin EC] 81 mg PO DAILY 06/06/18 Biotin 10 mg PO DAILY 06/06/18 Calcium (Elemental) [[place] 500] 500 mg PO DAILY 06/06/18 Cetirizine HCl [Zyrtec] 10 mg PO DAILY 06/06/18 Lactobacillus Acidophilus [Probiotic] 1 cap PO DAILY 06/06/18 Lisinopril 20 mg PO DAILY 06/06/18 Magnesium 250 mg PO DAILY 06/06/18 Memantine HCl 10 mg PO BID 06/06/18 Multivitamin [Multiple Vitamins] 1 tab PO DAILY 06/06/18 Cefdinir [Omnicef [equiv]] 300 mg PO Q12 capsule 06/11/18 Primary Care Physician: Filiberto Robles DO [Primary Care Provider] - Please follow up with your Primary Care Physician in: 1 Week Please Follow Up With: Wound Care Center When: 1 Week Please Follow Up With: Reddy Hansen MD When: within a month of discharge; call office to schedule for vascular referral Disposition: Snf facility Minutes spent on discharge:: 35 Patient Condition:: Stable Medical Necessity - Tobacco Use Smoking Status: Never smoker Tobacco Use: Non-smoker Meaningful Use Info Meaningful Use Diagnoses (Choose all that apply): None applicable <Giovany Sanchez - Last Filed: 06/11/18 14:31> Discharge Date and Diagnosis - Secondary Discharge Diagnosis Chronic Problems Dementia (Chronic) HTN (hypertension) (Chronic) HLD (hyperlipidemia) (Chronic) GERD (gastroesophageal reflux disease) (Chronic) Neuropathy (Chronic) Allergic rhinitis (Chronic) Hospital Course and Treatment Imaging Results: 06/11/18 09:30 Bone Scan Three Phase [NM] Routine Consultations 06/06/18 22:12 Consult: Onc/Wound/dress cutter Routine Comment: Operations: None Procedures: Stress test Summary of Care Provided: Patient seen and examined independently. Data reviewed. I agree with the above note by the nurse practitioner. The patient is a 77 year old F presented with confusion from baseline. On patient was also found to have a necrotic left second toe distal tip. Patient also had chest pain. Patient underwent a workup for the chest pain with a stress test that was unremarkable. For her left second toe infected ulcer, cultures grew out Staphylococcus and strep. Bone scan was positive for osteomyelitis. Patient will need to follow-up with vascular surgery in the outpatient setting and to keep pressure off the ulcer in the meantime. [] - Physical Exam General: Alert, No apparent distress HEENT: Atraumatic, Normocephalic Oral: Moist Mucosa, No Gingival or Mucosal Lesions/ Ulcerations Neck: No Nodes, Thyroid Normal Size and Texture Lungs: Clear to auscultation, Normal air movement Cardiovascular: Regular rate, Regular Rhythm, Normal S1, Normal S2, No murmurs Abdomen: Bowel Sounds Present, Soft, Non Tender, Non-Distended, No Hepato- splenomegaly Extremities: No edema, No Calf Tenderness Skin: No rashes, No breakdown Psych/Mental Status: Normal Affect, Appropriate Vital Signs Temp Pulse Resp BP Pulse Ox 36.2 C L 88 16 139/75 H 96 06/11/18 10:04 06/11/18 10:04 06/11/18 10:04 06/11/18 10:04 06/11/18 10:04 Oxygen Delivery Method Room Air Weight: 59.5 kg Body Mass Index (BMI) 28.3 Intake and Output for Last 24 Hours 06/09/18 06/10/18 06/11/18 23:59 23:59 23:59 Intake Total 3415 / 3415 1419 / 1419 326.6 / 326.6 Output Total 2100 / 2100 525 / 525 450 / 450 Balance 1315 / 1315 894 / 894 -123.4 / -123.4 Microbiology Past 72 Hours 06/06/18 21:15 Gram Stain - Final Wound - Toe Wound Culture - Final Staphylococcus lugdunensis Streptococcus mitis/ oralis 06/06/18 21:15 Blood Culture - Preliminary Blood Culture (Wb) - Anticubital Left No growth in 48 hours. 06/06/18 21:10 Blood Culture - Preliminary Blood Culture (Wb) - Anticubital Right No growth in 48 hours. Discharge Diet: No Restrictions Weight Bearing Status: Partial weight bearing Call your doctor if your incision/area has: Continuous Slow Oozing, Sudden Increased Bleeding, Increased Pain/ Swelling, Increased Redness, Foul Smelling Discharge, Swelling at the incision site Call your doctor if you observe: Fever of 101 or Higher, Calf discomfort, Uncontrolled pain Cleanse incision/area with: Soap & Water, - Disposition: Snf facility Minutes spent on discharge:: 35 Patient Condition:: Stable Medical Necessity - Tobacco Use Smoking Status: Never smoker Tobacco Use: Non-smoker Meaningful Use Info Meaningful Use Diagnoses (Choose all that apply): None applicable Code Visit Inpatient E&M: 46867 Disch Hosp
--- NOTE | 2018-06-11 16:38 | NURSING ---
report called to CC at this time
== END 2018-06-11 16:54 | disposition skilled nursing facility (03) | DRG 264 ==
LOC: ED 19:09 → PCU 21:15
PROVIDERS: Student in an Organized Health Care Education/Training Program; Admitting Provider Family Medicine; Emergency Provider Emergency Medicine; Family Provider Family Medicine; PCP Family Medicine
DX: R07.89 Other chest pain (principal); M86.8X7 Other osteomyelitis, ankle and foot; F03.90 Unspecified dementia, unspecified severity, without behavioral disturbance, psychotic disturbance, mood disturbance, and anxiety; E78.5 Hyperlipidemia, unspecified; G62.9 Polyneuropathy, unspecified; M43.12 Spondylolisthesis, cervical region; K21.9 Gastro-esophageal reflux disease without esophagitis; I12.9 Hypertensive chronic kidney disease with stage 1 through stage 4 chronic kidney disease, or unspecified chronic kidney disease; N18.3 Chronic kidney disease, stage 3 (moderate); B95.7 Other staphylococcus as the cause of diseases classified elsewhere; B95.4 Other streptococcus as the cause of diseases classified elsewhere; S16.1XXA Strain of muscle, fascia and tendon at neck level, initial encounter; L97.529 Non-pressure chronic ulcer of other part of left foot with unspecified severity
CPT/HCPCS: 36415; 70496; 70498; 71045; 72050; 73630; 78315; 78452; 80048; 80053; 80061; 80202; 81001; 83605; 83735; 84484; 85025; 85027; 85610; 85652; 85730; 86140; 87040; 87070; 87075; 87077; 87186; 87205; 87640; 93005; 93017; 93923; 97110; 97116; 97162; 97165; 97530; 97535; 97802; 99284; A9500; J7030; J7040; Q9967; A4216; J2785

== ENCOUNTER 2018-06-19 13:00 | Outpatient (RCR) | payer MEDICARE, SELFPAY ==
[2018-06-06 22:34] VITALS: BMI 28.3
[2018-06-17 13:09] VITALS: BP 151/92; PULSE 58; RESP 18; TEMP 36.8
[2018-06-19 13:19] VITALS: BP 167/72; PULSE 64; RESP 18; TEMP 36.9; BMI 28.3
--- NOTE | 2018-06-19 14:22 | PCM.WC.PN ---
(1) Chronic ulcer of left foot with fat layer exposed Status: Chronic Current Visit: Yes Code(s): L97.522 - Non-pressure chronic ulcer of other part of left foot with fat layer exposed (2) Cellulitis of left foot Status: Resolved Current Visit: Yes Code(s): L03.116 - Cellulitis of left lower limb (3) Dementia Status: Chronic Current Visit: Yes Qualifiers: Code(s): F03.90 - Unspecified dementia without behavioral disturbance (4) Neuropathy Status: Chronic Current Visit: Yes Code(s): G62.9 - Polyneuropathy, unspecified (5) Other specified peripheral vascular diseases Status: Chronic Current Visit: Yes Code(s): I73.89 - Other specified peripheral vascular diseases Comment: small vessel disease (6) Osteomyelitis Status: Suspected Current Visit: Yes Code(s): M86.9 - Osteomyelitis, unspecified Type of Wound Date of Service: 06/19/18 Chief Complaint: Left second toe ulcer History of Wound: This 77-year-old pleasant female presents to the wound healing center for follow-up of left second toe ulcer with an onset of approximately late March 2018. She is previously treated with traditional ulcer care with Dr. Morgan at the foot and ankle Center with offloading, debridement, and daily wound care. She recently had a hospital admission about 2 weeks ago at [facility] in which she was treated with IV antibiotics and osteomyelitis work-up was initiated with labs, cultures, and a bone scan of the foot. It is noted she did not have a white blood cell labeled portion of this exam completed after she was discharged. She was also seen for neck pain at that time. During the hospitalization process it was noted that she had necrotic second toe rapid progression. Today, she denies fever, chills, nausea, vomiting, loss of appetite. She is with her family member. She denies claudication however denies regular walking. She does have rest paresthesias and loss of sensation to the lower extremities. She was previously advised to follow-up with Dr. Kiran, vascular surgeon, and outpatient setting secondary to her abnormal noninvasive arterial studies that are consistent with small vessel disease. Past medical history: Dementia, chronic kidney disease stage III, hypertension, hyperlipidemia, neuropathy, GERD, recent chest and neck pain, confusion. Medications: Reviewed. Allergies: Reviewed. Surgeries: Left foot surgery, hysterectomy, bilateral total knee replacements. Social history: Lives at [facility], denies smoking. Family history: Nonpertinent at this time Progress of Wound: Improved from recent hospital admission - Physical Exam Vital Signs Temp Pulse Resp BP 98.4 F 64 18 167/72 H 06/19/18 13:19 06/19/18 13:19 06/19/18 13:19 06/19/18 13:19 General: Alert, Oriented x3, Cooperative HEENT: Atraumatic Extremities: No cyanosis, Capillary Refill Less than 3 Seconds, No Calf Tenderness - Negative Leonor and Nino sign bilateral, Diminished Peripheral Pulses, Edema - Decreased to left second toe, - - Very subtle contraction of left second toe, overall rectus. Compartments of left foot toe and ankle are soft. No pain with ulcer manipulation left foot Skin: Ulcer/ Wound - No purulence, erythema, streaking, odor, or infection or necrosis or deep tissue exposure. There is no probe to bone. The toe does not appear to look bulbous. There is no interdigital maceration. The peripheral skin is hairless and atrophic. The toenail is 5 times regular thickness to the left second toe Wound Measurements and Assessment WC - Nurse 1 - General Ulcer Measurement Start: 06/17/18 12:56 Freq: Status: Active Protocol: Activity Type Activity Date Activity User E-Sign Co-Sign Detail Recorded Client Recorded Date Recorded By Document 06/17/18 13:09 DL [id number] 06/17/18 13:34 DL Document 06/19/18 13:19 JF [id number] 06/19/18 13:22 06/17/18 06/19/18 13:09 13:19 Wound Center Nurse 1 [Ulcer Assessment] #1 L 2nd Toe -Combined with other wound No -Current Size (cm) - Length 0.7 0.4 -Current Size (cm) - Width 0.7 0.3 -Current Size (cm) - Depth 0.1 0.1 -Total Square Cm 0.49 0.12 -Photo Taken Yes No -Epithelialization Medium 34-66% -Tunneling No -Undermining/Tunneling No -Circular Undermining No -Exudate Amt None Present -Wound Margin Flat & Intact -Granulation Amt Medium (34-66%) -Granulation Quality Red -Slough/Fibrin Yes -Necrosis Amt Small (1-33%) -Necrotic Tissue Type Adherent Slough -Structure Exposed N/A -Texture (Angela-wound Skin Appearance) Assessed -Moisture (Angela-wound Skin Appearance Assessed ) Dry/Scaly -Color (Angela-wound Skin Appearance) Assessed -Temperature (Angela-wound Skin No Abnormality Appearance) (Pt Warm) -Tenderness on Palpation (Angela-wound No Skin Appearance) -Ulcer Cleansing Rinsed/ Irrigated with Saline -Foul Odor after Cleansing No -Anesthetic Used 5% Lidocaine Gel [Edema Assessment] -Lower Limb Edema Present No - Nurse 2 - General Ulcer CM Notes Start: 06/17/18 12:56 Freq: Status: Active Protocol: Activity Type Activity Date Activity User E-Sign Co-Sign Detail Recorded Client Recorded Date Recorded By Document 06/19/18 14:04 [id number] 06/19/18 14:06 06/19/18 14:04 Wound Center Nurse 2 [Procedure/Treatment] #1 L 2nd Toe -Time 14:05 -Correct Patient Yes -Correct Side, Site, Position Yes -Correct Procedure Yes -Procedure Performed Yes -Type of Procedure Debridement -Clinical Debridement Subcutaneous -Post Debridement Size (cm) - Length 0.4 -Post Debridement Size (cm) - Width 0.4 -Post Debridement Size (cm) - Depth 0.1 -Total Square Cm 0.16 -Wound/Ulcer Outcome Not Healed -Ulcer Cleansing Rinsed/ Irrigated with Saline -Foul Odor after Cleansing No -Bioengineered Tissue No -Bleeding Controlled with Pressure -Offloading Yes -Type of Offloading Surgical Shoe -Treatment Response Procedure Tolerated Well [See Physician Procedure note for Specifics] Pain Scale: 0-10 Numeric [Pain] -Is Patient Pain Free? Yes Musculoskeletal: No Tenderness to Palpation of Joints or Extremities, Muscle Wasting Neurological: - - Lack of normal epicritic sensation to light touch consistent with neuropathy Psych/Mental Status: Normal Affect - Intermittent confusion noted, Appropriate Debridement Note Post-Debridement Measurements/Treatment WC - Nurse 2 - General Ulcer CM Notes Start: 06/17/18 12:56 Freq: Status: Active Protocol: Activity Type Activity Date Activity User E-Sign Co-Sign Detail Recorded Client Recorded Date Recorded By Document 06/19/18 14:04 JF [id number] 06/19/18 14:06 06/19/18 14:04 Wound Center Nurse 2 #1 L 2nd Toe -Time 14:05 -Correct Patient Yes -Correct Side, Site, Position Yes -Correct Procedure Yes -Procedure Performed Yes -Type of Procedure Debridement -Clinical Debridement Subcutaneous -Post Debridement Size (cm) - Length 0.4 -Post Debridement Size (cm) - Width 0.4 -Post Debridement Size (cm) - Depth 0.1 -Total Square Cm 0.16 -Wound/Ulcer Outcome Not Healed -Ulcer Cleansing Rinsed/ Irrigated with Saline -Foul Odor after Cleansing No -Bioengineered Tissue No -Bleeding Controlled with Pressure -Offloading Yes -Type of Offloading Surgical Shoe -Treatment Response Procedure Tolerated Well Pain Scale: 0-10 Numeric Is Patient Pain Free? Yes Wound debrided: distal second toe Laterality: Left Type of Debridement: Excisional debridement Anesthesia Used: 5% Lidocaine Gel Depth: in the subcutaneous layer Percentage of wound debrided: 100 Instrument Used: #15 blade Tissue Removed: fibrous, devitalized subcutaneous, biofilm, slough Severity: Fat Layer Exposed Amount of bleeding with debridement: Mild Bleeding Controlled with: Pressure Patient tolerated procedure well Assessment/Plan Active Problems Chronic ulcer of left foot with fat layer exposed (Chronic) Dementia (Chronic) Neuropathy (Chronic) Other specified peripheral vascular diseases (Chronic) small vessel disease Assessment: As noted above Plan: I reviewed and discussed her care plan with the patient as well as her family member. Subcutaneous excisional debridement was performed as noted in the clinical panel. To change dressing daily with hydrogel and Adaptic. She was reassured the local signs of infection and necrotic tissue are no longer present. She is on a 40-day course of Omnicef involving 300 mg p.o. twice daily per infectious disease recommendations. She did have a positive three-phase bone scan which indicated a high suspicion for osteomyelitis of the distal phalanx. It does not appear she had her follow-up white blood cell labeled scan after she was discharged from the hospital as initially discussed. Her previous culture results include strep and staph lug to follow-up with infectious diseasedunensis. As recommended. Serial labs will be followed as well. To wear offloading surgical shoe to keep pressure off the ulcer site. Her previous noninvasive arterial studies were reviewed and is consistent with small vessel disease. To follow-up with vascular surgeon Dr. Hansen in the outpatient setting. She is advised to optimize healing potential by taking a nutritional supplement. This was ordered for her to take at [facility] including [place] twice daily. To follow-up at the wound healing center in 1 week. I answered her questions.
== END 2018-06-25 23:59 ==
LOC: WC 13:00
PROVIDERS: Family Provider Family Medicine; PCP Family Medicine; Visit Provider Podiatrist
DX: I73.89 Other specified peripheral vascular diseases (principal); F03.90 Unspecified dementia, unspecified severity, without behavioral disturbance, psychotic disturbance, mood disturbance, and anxiety; G62.9 Polyneuropathy, unspecified; L97.522 Non-pressure chronic ulcer of other part of left foot with fat layer exposed; K21.9 Gastro-esophageal reflux disease without esophagitis; E78.5 Hyperlipidemia, unspecified; N18.3 Chronic kidney disease, stage 3 (moderate); I12.9 Hypertensive chronic kidney disease with stage 1 through stage 4 chronic kidney disease, or unspecified chronic kidney disease
CPT/HCPCS: 11042

== ENCOUNTER 2018-07-03 08:43 | Outpatient (RCR) | payer MEDICARE, SELFPAY ==
[2018-06-26 01:54] VITALS: BP 167/72; PULSE 64; RESP 18; TEMP 36.9
== END 2018-07-26 23:59 ==
LOC: WC 08:43
PROVIDERS: Family Provider Family Medicine; PCP Family Medicine; Visit Provider Podiatrist
DX: Z09 Encounter for follow-up examination after completed treatment for conditions other than malignant neoplasm (principal)

== ENCOUNTER 2018-09-11 08:39 | Outpatient (RCR) | payer MEDICARE, SELFPAY ==
--- NOTE | 2018-09-11 09:24 | PCM.WC.PN ---
(1) Pre-ulcerative corn or callous Status: Chronic Code(s): L84 - Corns and callosities (2) Chronic ulcer of left foot with fat layer exposed Status: Resolved Code(s): L97.522 - Non-pressure chronic ulcer of other part of left foot with fat layer exposed (3) Neuropathy Status: Chronic Code(s): G62.9 - Polyneuropathy, unspecified (4) Other specified peripheral vascular diseases Status: Chronic Code(s): I73.89 - Other specified peripheral vascular diseases Comment: small vessel disease Type of Wound Date of Service: 09/15/18 Chief Complaint: Left second toe ulcer History of Wound: This 77-year-old pleasant female presents to the wound healing center for follow-up of left second toe ulcer with an onset of approximately late March 2018. She is previously treated with traditional ulcer care including offloading, debridement, and daily wound care. She denies drainage and thinks the ulcer site has healed. She wears a surgical shoe. Progress of Wound: Healed - Physical Exam General: Alert, Oriented x3, Cooperative, No apparent distress HEENT: Atraumatic Extremities: No cyanosis, Capillary Refill Less than 3 Seconds, No Calf Tenderness - Negative Leonor and Nino signs bilateral, Diminished Peripheral Pulses, - - Dorsal contraction of lesser digits noted Skin: Ulcer/ Wound - Full epithelialization is noted at the previous ulcer site. There is no purulence, erythema, streaking, or infection. The skin is hairless and atrophic. Musculoskeletal: No Tenderness to Palpation of Joints or Extremities, Muscle Wasting Neurological: - - Patient lack of normal epicritic sensation to light touch consistent with neuropathy Psych/Mental Status: Normal Affect, Appropriate Debridement Note No debridement was completed today - The ulcer site has healed Assessment/Plan Assessment: As noted above Plan: I reviewed and discussed her care plan with the patient as well as her family member. No debridement was performed today because the ulcer site is healed. To monitor daily for reopening and infection development in which neither is noted. No dressing care is recommended. Her previous infection was noted from earlier this year and this seems to be resolved. She did complete all long-term course of antibiotics and complete work-up. Her previous noninvasive arterial studies were reviewed and is consistent with small vessel disease. To follow-up with vascular surgeon Dr. Hansen in the outpatient setting. She is advised to optimize healing potential by taking a nutritional supplement. She is discharged from the wound healing center at this time due to ulcer healing. To follow-up at the foot and ankle center for palliative care and risk assessments. It is okay for her to wear extra-depth shoe at this time surgical shoe.
== END 2018-09-25 23:59 ==
LOC: WC 08:39
PROVIDERS: Family Provider Family Medicine; PCP Family Medicine; Visit Provider Podiatrist
DX: Z09 Encounter for follow-up examination after completed treatment for conditions other than malignant neoplasm (principal); I73.89 Other specified peripheral vascular diseases; G62.9 Polyneuropathy, unspecified; L84 Corns and callosities
CPT/HCPCS: 99213; G0463

== ENCOUNTER → 2018-10-03 12:34 | Outpatient (CLI) | payer MEDICARE, SELFPAY ==
[2018-10-03 15:38] LABS: Absolute Lymphocyte Count 1.48 X10^3/uL (0.83-4.51); Absolute Neutrophil Count 4.4 X10^3/uL (2.0-7.7); Basophil# 0.03 X10^3/uL; Basophil% 0.5 % (0-1); Eosinophil# 0.13 X10^3/uL; Hematocrit 41.6 % (37-47); Hemoglobin 14.5 g/dL (12.0-15.0); Lymphocyte # 1.48 X10^3/ul (4.0); Lymphocyte % 22.6 % (19-41); Mean Corp Hgb Conc 34.9 g/dL (32-36); Mean Corpuscular Volume 97.4 fL (81-99); Mean Platelet Vol. 9.9 fl (6.2-12.0); Monocyte# 0.52 X10^3/uL; NRBC Flagged by Analyzer 0 % (0-5); Neutrophil # 4.36 X10^3/uL (2.7-7.7); Neutrophil % 66.6 % (47-70); Platelet Count 202 K/mm3 (150-450); RBC Distribution Width CV 11.9 % (11.6-14.6); RBC Distribution Width SD 42.5 fl (35.1-43.9); Red Blood Count 4.27 M/mm3 (4.2-5.4); White Blood Count 6.5 K/mm3 (4.4-11.0)
[2018-10-03 15:46] LABS: ALB/GLOB Ratio 1.2 RATIO (0.9-2.4); AST(SGOT) 24 U/L (15-37); Alanine Aminotransfer ALT/SGPT 28 U/L (13-56); Albumin, Serum 4.2 g/dL (3.2-5.0); Alkaline Phosphatase 122 U/L (45-117); Anion Gap 9 (5-15); BUN 19 mg/dL (7-18); BUN/Creat Ratio 18.3 RATIO (10-20); Calcium,Total 10.4 mg/dL (8.5-10.1); Chloride 98 mmol/L (98-107); Creatinine, Serum 1.04 mg/dL (0.55-1.02); EST Glomerular Filtration Rate 55 mL/min (>60); Est Glom Filt Rate - Afr Amer 66 mL/min (>60); Globulin 3.4 g/dL (2.2-4.2); Glucose 92 mg/dL (74-106); Potassium 4.2 mmol/L (3.5-5.1); Protein, Total 7.6 g/dL (6.4-8.2); Sodium Level 138 mmol/L (136-145)
== END ==
PROVIDERS: Family Provider Family Medicine; PCP Family Medicine; Visit Provider Family Medicine
DX: N18.3 Chronic kidney disease, stage 3 (moderate) (principal); D64.9 Anemia, unspecified
CPT/HCPCS: 36415; 80053; 85025